=== PATIENT | male | born 1945 | race Caucasian/White ===

== ENCOUNTER 2016-03-25 10:10 | Observation (INO) | payer MEDICARE, BC ==
[2016-03-25] MEDS ORDERED: SODIUM CHLORIDE 0.9% 1,000 ML IV STA (10:18)
[2016-03-25 10:27] LABS: Glucose,Whole Blood 310 mg/dL (75-99)
[2016-03-25 10:39] LABS: Basophils % (A) 1 %; CH 31.4; CHCM 32.8; Eosinophils # (A) 0.3 k/uL (0-0.7); Eosinophils % (A) 4 %; HCT 40.5 % (39.0-53.0); HDW 2.71; HGB 13.3 gm/dL (13.0-17.5); Luc % (Auto) 3; Lymphocytes # (A) 2.7 k/uL (1.0-4.8); Lymphocytes % (A) 44 %; MCH 31.6 pg (25.0-35.0); MCHC 32.8 g/dL (31.0-37.0); MCV 96.4 fL (80.0-100.0); Mean Platelet Volume 7.2; Monocytes # (A) 0.3 k/uL (0-1.0); Monocytes % (A) 4 %; Neutrophils # (A) 2.7 k/uL (1.3-7.7); Neutrophils % (A) 44 %; RDW 12.4 % (11.5-15.5); WBC 6.1 k/uL (3.8-10.6); WBC (Perox) 6.33
[2016-03-25 10:50] LABS: INR 1.1 (<1.1); Partial Thromboplastin Time 30.4 sec (22.0-30.0); Prothrombin Time 10.8 sec (9.0-12.0)
[2016-03-25 10:52] LABS: ALT 33 U/L (21-72); AST 17 U/L (17-59); Alkaline Phosphatase 79 U/L (38-126); Anion Gap 13 mmol/L; Blood Urea Nitrogen 29 mg/dL (9-20); Calcium 8.6 mg/dL (8.4-10.2); Carbon Dioxide 24 mmol/L (22-30); Chloride 100 mmol/L (98-107); Glucose 305 mg/dL (74-99); Magnesium 1.8 mg/dL (1.6-2.3); Non-African American GFR(MDRD) 52 (>60 ml/min/1.73 sqM); Potassium 4.4 mmol/L (3.5-5.1); Sodium 137 mmol/L (137-145); Total Bilirubin 0.7 mg/dL (0.2-1.3); Total Protein 6.3 g/dL (6.3-8.2)
--- NOTE | 2016-03-25 10:55 | ED ---
Altered Mental Status HPI - General Chief Complaint: Altered Mental Status Stated Complaint: Altered Mental Time Seen by Provider: 03/25/16 10:10 Source: patient, family, EMS, RN notes reviewed Mode of arrival: EMS Limitations: no limitations - History of Present Illness Initial Comments: This is a 70-year-old male with a history of CVA who apparently was in the shower and when he was being helped out of the stand down and became unresponsive for up to 20 minutes per his family. EMS was called he was found to be ashen unresponsive blood pressure 96/58. 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 Patient did respond to 300 mL of IV fluid with improvement of his systolic blood pressure to 112 he did have a blood sugar 319 initially. 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 He also has a recent treatment with injections into his neck. No reports of fevers chills nausea vomiting chest pain cough or phlegm production. MD Complaint: altered mental status, confusion, decreased responsiveness - Related Data Home Medications Medication Instructions Recorded Confirmed Aspirin EC [Ecotrin] 325 mg PO DAILY 02/10/15 03/25/16 Gabapentin [Neurontin] 800 mg PO BID 02/10/15 03/25/16 Pioglitazone [Actos] 45 mg PO DAILY 02/10/15 03/25/16 Valsartan/Hydrochlorothiazide 1 tab PO DAILY 02/10/15 03/25/16 [Valsartan-Hctz 160-12.5 mg Tab] sitaGLIPtin PHOSPHATE [Januvia] 100 mg PO DAILY 02/10/15 03/25/16 traMADol HCL [Ultram] 50 mg PO TID 02/10/15 03/25/16 Multivitamins, Thera [Multivitamin] 1 tab PO DAILY 03/25/16 03/25/16 glipiZIDE [Glipizide Xl] 10 mg PO BID 03/25/16 03/25/16 Previous Rx's Medication Instructions Recorded Levofloxacin [Levaquin] 500 mg PO DAILY #7 tab 02/14/15 Allergies Allergy/AdvReac Type Severity Reaction Status Date / Time Penicillins Allergy Mild Rash/Hives Verified 02/10/15 12:10 ceftriaxone [From Rocephin] Allergy Unknown Verified 03/25/16 10:36 doxycycline Allergy Unknown Verified 03/25/16 10:36 Review of Systems ROS Statement: Those systems with pertinent positive or pertinent negative responses have been documented in the HPI. ROS Other: All systems not noted in ROS Statement are negative. Past Medical History Past Medical History: CVA/TIA, Diabetes Mellitus, Hypertension Additional Past Medical History / Comment(s): cva 2012-left hand and arm weakness History of Any Multi-Drug Resistant Organisms: None Reported Past Surgical History: Appendectomy, Back Surgery, Tonsillectomy Additional Past Surgical History / Comment(s): CAROTID ENDARC, KNEE SURGERY- arthroscopic, fusion C5-C7 with screw. Skin cells removed from bilat. side of face. Past Anesthesia/Blood Transfusion Reactions: No Reported Reaction, Motion Sickness Past Psychological History: No Psychological Hx Reported Smoking Status: Never smoker Past Alcohol Use History: None Reported Past Drug Use History: None Reported - Past Family History Mother Family Medical History: Diabetes Mellitus, Myocardial Infarction (PR) Father Family Medical History: CVA/TIA Brother(s) Family Medical History: CVA/TIA General Exam - General Exam Comments Initial Comments: This a well-developed well-nourished awake alert oriented history male Limitations: no limitations General appearance: alert, in no apparent distress Head exam: Present: atraumatic, normocephalic, normal inspection Eye exam: Present: normal appearance, PERRL, EOMI. Absent: scleral icterus, conjunctival injection, periorbital swelling ENT exam: Present: normal exam, mucous membranes moist Neck exam: Present: normal inspection. Absent: tenderness, meningismus, lymphadenopathy Respiratory exam: Present: normal lung sounds bilaterally. Absent: respiratory distress, wheezes, rales, rhonchi, stridor Cardiovascular Exam: Present: regular rate, normal rhythm, normal heart sounds. Absent: systolic murmur, diastolic murmur, rubs, gallop, clicks GI/Abdominal exam: Present: soft, normal bowel sounds. Absent: distended, tenderness, guarding, rebound, rigid Extremities exam: Present: normal inspection, full ROM, normal capillary refill. Absent: tenderness, pedal edema, joint swelling, calf tenderness Back exam: Present: normal inspection Neurological exam: Present: alert, oriented X3, CN II-XII intact, motor sensory deficit Psychiatric exam: Present: normal affect, normal mood Skin exam: Present: warm, dry, intact, pallor. Absent: rash Course Vital Signs 03/25/16 03/25/16 10:20 14:06 Temperature 96.5 F L 97.2 F L Pulse Rate 74 79 Respiratory 18 16 Rate Blood Pressure 114/62 142/79 O2 Sat by Pulse 96 100 Oximetry - Reevaluation(s) Reevaluation #1: 03/25/16 14:13 Patient remains awake alert. The CAT scan of the chest was pending due to elevated d-dimer. Medical Decision Making - Medical Decision Making The patient remains awake alert oriented history he will be admitted for evaluation of syncope. - Lab Data Result diagrams: 03/25/16 10:25 03/25/16 10:25 Lab Results 03/25/16 03/25/16 03/25/16 Range/Units 10:25 10:25 10:25 WBC 6.1 (3.8-10.6) k/uL RBC 4.20 L (4.30-5.90) m/uL Hgb 13.3 (13.0-17.5) gm/dL Hct 40.5 (39.0-53.0) % MCV 96.4 (80.0-100.0) fL MCH 31.6 (25.0-35.0) pg MCHC 32.8 (31.0-37.0) g/dL RDW 12.4 (11.5-15.5) % Plt Count 169 (150-450) k/uL Neutrophils % 44 % Lymphocytes % 44 % Monocytes % 4 % Eosinophils % 4 % Basophils % 1 % Neutrophils # 2.7 (1.3-7.7) k/uL Lymphocytes # 2.7 (1.0-4.8) k/uL Monocytes # 0.3 (0-1.0) k/uL Eosinophils # 0.3 (0-0.7) k/uL Basophils # 0.0 (0-0.2) k/uL PT (9.0-12.0) sec INR (<1.1) APTT (22.0-30.0) sec D-Dimer (<0.60) mg/L FEU Sodium (137-145) mmol/L Potassium (3.5-5.1) mmol/L Chloride (98-107) mmol/L Carbon Dioxide (22-30) mmol/L Anion Gap mmol/L BUN (9-20) mg/dL Creatinine (0.66-1.25) mg/dL Est GFR (MDRD) Af Amer (>60 ml/min/1.73 sqM) Est GFR (MDRD) Non-Af (>60 ml/min/1.73 sqM) Glucose (74-99) mg/dL POC Glucose (mg/dL) 310 H (75-99) mg/dL POC Glu Tax Services Specialist ID Branch, Javier Calcium (8.4-10.2) mg/dL Magnesium (1.6-2.3) mg/dL Total Bilirubin (0.2-1.3) mg/dL AST (17-59) U/L ALT (21-72) U/L Alkaline Phosphatase (38-126) U/L Total Creatine Kinase 27 L (55-170) U/L CK-MB (CK-2) 0.7 (0.0-2.4) ng/mL CK-MB (CK-2) Rel Index 2.6 Troponin I <0.012 (0.000-0.034) ng/mL Total Protein (6.3-8.2) g/dL Albumin (3.5-5.0) g/dL 03/25/16 03/25/16 Range/Units 10:25 10:25 WBC (3.8-10.6) k/uL RBC (4.30-5.90) m/uL Hgb (13.0-17.5) gm/dL Hct (39.0-53.0) % MCV (80.0-100.0) fL MCH (25.0-35.0) pg MCHC (31.0-37.0) g/dL RDW (11.5-15.5) % Plt Count (150-450) k/uL Neutrophils % % Lymphocytes % % Monocytes % % Eosinophils % % Basophils % % Neutrophils # (1.3-7.7) k/uL Lymphocytes # (1.0-4.8) k/uL Monocytes # (0-1.0) k/uL Eosinophils # (0-0.7) k/uL Basophils # (0-0.2) k/uL PT 10.8 (9.0-12.0) sec INR 1.1 (<1.1) APTT 30.4 H (22.0-30.0) sec D-Dimer 0.95 H (<0.60) mg/L FEU Sodium 137 (137-145) mmol/L Potassium 4.4 (3.5-5.1) mmol/L Chloride 100 (98-107) mmol/L Carbon Dioxide 24 (22-30) mmol/L Anion Gap 13 mmol/L BUN 29 H (9-20) mg/dL Creatinine 1.35 H (0.66-1.25) mg/dL Est GFR (MDRD) Af Amer >60 (>60 ml/min/1.73 sqM) Est GFR (MDRD) Non-Af 52 (>60 ml/min/1.73 sqM) Glucose 305 H (74-99) mg/dL POC Glucose (mg/dL) (75-99) mg/dL POC Glu Tax Services Specialist ID Calcium 8.6 (8.4-10.2) mg/dL Magnesium 1.8 (1.6-2.3) mg/dL Total Bilirubin 0.7 (0.2-1.3) mg/dL AST 17 (17-59) U/L ALT 33 (21-72) U/L Alkaline Phosphatase 79 (38-126) U/L Total Creatine Kinase (55-170) U/L CK-MB (CK-2) (0.0-2.4) ng/mL CK-MB (CK-2) Rel Index Troponin I (0.000-0.034) ng/mL Total Protein 6.3 (6.3-8.2) g/dL Albumin 3.5 (3.5-5.0) g/dL - EKG Data -: EKG Interpreted by Ia EKG shows normal: sinus rhythm (Sinus rhythm first-degree AV block occasional PVCs rate was 79 MD interval 248 QRS duration 90 QT/QTC of 390/447 also evidence of old inferior changes) - Radiology Data Radiology results: report reviewed (I did review the imaging and report. The CAT scan as well as dense of aneurysms ascending aorta. 4.1 cm. Proximal ascending aorta 3.8 cm. Proximal ascending aorta 3.0 cm. Non-optimize for excluding pulmonary embolism.), image reviewed Critical Care Time Critical Care Time: Yes Critical Care Time: 39 minutes which includes the monitoring of the initial EMS report as well as evaluation for the paramedics. History physical labs x-rays CAT scans discussed with family members on multiple occasions. Discussion with the admitting physician. Documentation above admission orders Disposition Clinical Impression: Syncope and collapse Disposition: ADMITTED IP TO THIS HOSP Condition: Stable
--- NOTE | 2016-03-25 10:57 | XR ---
EXAMINATION TYPE: XR chest 2V DATE OF EXAM: 03/25/2016 10:50 AM COMPARISON: 02/10/1950 HISTORY: Shortness of breath TECHNIQUE: Frontal and lateral views of the chest are obtained. FINDINGS: Scattered senescent parenchymal changes noted. Hyperinflation compatible with COPD. No evidence for infiltrate. Mild right basilar atelectasis. Chronic elevation right hemidiaphragm. Heart size is stable. Mediastinal structures are stable and grossly unremarkable. No evidence for hilar prominence. Degenerative changes dorsal spine. IMPRESSION: 1. No evidence for acute pulmonary disease.
[2016-03-25 11:06] LABS: Creatine Kinase 27 U/L (55-170)
[2016-03-25 11:19] LABS: Creatine Kinase MB 0.7 ng/mL (0.0-2.4); Troponin I <0.012 ng/mL (0.000-0.034)
--- NOTE | 2016-03-25 11:19 | CT ---
EXAMINATION TYPE: CT brain wo con DATE OF EXAM: 03/25/2016 10:46 AM COMPARISON: Prior CT brain 10 February 2015 HISTORY: Patient complains of syncopal episode today. CT DLP: 810.5 mGycm Automated exposure control for dose reduction was used. FINDINGS: There is no acute intracranial hemorrhage, mass effect, or midline shift identified. The ventricles and sulci are within normal limits in size accounting for patient's age, there is cortical atrophy an d evidence of prior cerebrovascular accident as on prior exam.. Cerebral vascular calcifications are again seen. Periventricular white matter low-attenuation is again noted. Some low attenuation at Mec shelley's cave region, at the level of the basilar artery seen on previous exam shows a similar appearanc e and may be medical claims representative of fat deposition, lipoma. Basal ganglia foci of low attenuation on the l eft compatible with lacunar infarcts as noted on previous. The globes are intact and the visualized s inuses are clear. IMPRESSION: No acute intracranial hemorrhage, mass effect, or midline shift is seen. Evidence of previous cerebro vascular accidents. Additional findings above.
[2016-03-25] MEDS ORDERED: SODIUM CHLORIDE 0.9% 500 ML IV STA (12:43)
[2016-03-25] MEDS ORDERED: RX INFO: IV CONTRAST WAS GIVEN 1 EACH MISC MISCELLANE PRN (12:43)
--- NOTE | 2016-03-25 14:07 | CT ---
EXAMINATION TYPE: CT angio chest DATE OF EXAM: 03/25/2016 1:51 PM COMPARISON: NONE HISTORY: Altered mental status CT DLP: 615 mGycm Automated exposure control for dose reduction was used. CONTRAST: CTA scan of the thorax is performed with IV Contrast, patient injected with 100 ml mL of Omnipaque 35 0, pulmonary embolism protocol. MIP images are created and reviewed. 3D reconstructed images are cr eated on an independent workstation and reviewed. FINDINGS Ascending aorta is aneurysmal at 4.1 cm at the level of the root. Proximal ascending aorta 3.8 cm. Proximal descending aorta is 3 cm. Contrast opacification within the pulmonary arteries is not optima l. Atheromatous plaque present within the aorta. Coronary artery calcifications are present. There ar e calcified mediastinal lymph nodes present, calcified right hilar nodes as well as calcifications wi thin the spleen. The right hemidiaphragm is elevated. There is no pneumothorax or pleural effusion. N o endobronchial lesion or pericardial effusion. No evident adenopathy. The proximal left subclavian a rtery may be stenotic. Postop change noted in the cervical spine. Patchy basilar atelectatic change i s present at the right lung base. OTHER: No additional significant abnormality is seen. There is a small hiatal hernia present. IMPRESSION: THE EXAM IS NOT OPTIMIZED TO EXCLUDE PULMONARY EMBOLISM DUE TO TECHNICAL FACTORS. 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
[2016-03-25] MEDS ORDERED: SODIUM CHLORIDE 0.9% 1,000 ML IV SCH (14:15)
[2016-03-25 14:46] LABS: Glucose,Whole Blood 230 mg/dL (75-99)
[2016-03-25 15:31] LABS: Appearance,Urine Clear (Clear); Bilirubin,Urine Negative (Negative); Glucose,Urine (UA) 4+ (Negative); Ketones,Urine Trace (Negative); Leukocyte Esterase,Urine Negative (Negative); Nitrite,Urine Negative (Negative); PH, Urine 5.5 (5.0-8.0); Protein,Urine Trace (Negative); Specific Gravity,Urine 1.043 (1.001-1.035); UA Billing (MACRO vs. MICRO) CHEM; Urobilinogen,Urine <2.0 mg/dL (<2.0)
--- NOTE | 2016-03-25 16:16 | US ---
EXAMINATION TYPE: US carotid duplex BILAT DATE OF EXAM: 03/25/2016 4:00 PM COMPARISON: Previous study dated 02/11/2015 CLINICAL HISTORY: Stenosis. Altered mental status EXAM MEASUREMENTS: RIGHT: Peak Systolic Velocity (PSV) cm/sec ----- Right CCA: 57.1 ----- Right ICA: 107.9 ----- Right ECA: 16.2 ICA/CCA ratio: 1.9 RIGHT: End Diastole cm/sec ----- Right CCA: 14.0 ----- Right ICA: 27.6 ----- Right ECA: 0.0 LEFT: Peak Systolic Velocity (PSV) cm/sec ----- Left CCA: 115.0 ----- Left ICA: 103.4 ----- Left ECA: 225.8 ICA/CCA ratio: 0.9 LEFT: End Diastole cm/sec ----- Left CCA: 15.3 ----- Left ICA: 31.2 ----- Left ECA: 0.0 VERTEBRALS (direction of flow): Right Vertebral: Antegrade Left Vertebral: Antegrade TECHNOLOGIST IMPRESSION: Bilateral intimal thickening, large amount of plaque throughout bilateral C CA, bulb, ICA and ECA, elevated velocity: left mid ECA IMPRESSION: 1. I do not see evidence of a hemodynamically significant stenosis in either internal or common carot id arteries. 2. Elevated flow velocity, left ECA. Criteria for Assigning % of Stenosis / Diameter reduction (Estimation based on the indirect measurements of the internal carotid artery velocities (ICA PSV). 1. Normal (no stenosis)=ICA PSV < 125 cm/s: ratio < 2.0: ICA EDV<40 cm/s. 2. Less than 50% stenosis=ICA PSV < 125 cm/s: ratio < 2.0: ICA EDV<40 cm/s. 3. 50 to 69% stenosis=ICA PSV of 125 to 230 cm/s: ration 2.0 ? 4.0: ICA EDV 40-100 cm/s. 4. Greater than 70% stenosis to near occlusion= ICA PSV > 230 cm/s: ratio > 4.0: ICA EDV > 100 cm/s. 5. Near occlusion= ICA PSV velocities may be low or undetectable: variable ratio and ICA EDV. 6. Total occlusion=unable to detect flow.
[2016-03-25] MEDS: traMADol 50 MG TAB PO SCH ×2 (17:32→21:42)
[2016-03-25] MEDS: INSULIN LISPRO (humaLOG) 300 UNIT/3 ML VIAL SQ SCH ×2 (17:34→21:39)
[2016-03-25 18:25] LABS: Glucose,Whole Blood 221 mg/dL (75-99)
[2016-03-25] MEDS: glipiZIDE 10 MG TAB PO SCH (18:25)
[2016-03-25 21:15] LABS: Glucose,Whole Blood 188 mg/dL (75-99)
[2016-03-25] MEDS: GABAPENTIN 400 MG CAP PO SCH (21:38)
[2016-03-25 22:24] LABS: Hemoglobin A1C 8.3 % (4.2-6.1)
[2016-03-26 07:07] LABS: Glucose,Whole Blood 172 mg/dL (75-99)
[2016-03-26 07:51] LABS: Anion Gap 8 mmol/L; Blood Urea Nitrogen 21 mg/dL (9-20); Calcium 8.7 mg/dL (8.4-10.2); Carbon Dioxide 27 mmol/L (22-30); Chloride 104 mmol/L (98-107); Cholesterol 147 mg/dL (<200); Glucose 157 mg/dL (74-99); HDL Cholesterol 32 mg/dL (40-60); Non-African American GFR(MDRD) >60 (>60 ml/min/1.73 sqM); Potassium 4.3 mmol/L (3.5-5.1); Sodium 139 mmol/L (137-145); Triglycerides 120 mg/dL (<150)
--- NOTE | 2016-03-26 08:27 | HP ---
DATE OF ADMISSION: Patient is a very pleasant 70-year-old gentleman who came in after he had a syncopal event. Patient was sitting in bathroom on the commode and patient's granddaughter was shaving his hutson around the neck area. Patient subsequently rolled his eyes and had a brief episode of unresponsiveness and patient appears to be responsive when EMS came in and patient was found responsive. Appears to have lasted only for a few minutes, although patient's family believes he was unresponsive for 20 minutes. Palpation does not appear to him, postictal confusion, denied any seizure-like activity. Patient was extensively evaluated during his previous hospitalization for seizures by Neurology at that time. Extensive work-up including MRI. EGR was done and essentially negative. Patient has a CVA with residual left-sided weakness. Previous history of CVA with ( ). This patient was evaluated due to his previous hospitalization for syncopal episodes. Patient's blood pressure was low when he was unresponsive 96/58 with normal blood sugars and the patient's orthostatic vitals appear to be essentially abnormal at this point of time. Patient's EKG showed some post degree AV block. Patient's blood pressures appear to be fluctuating at this point of time. Patient is on hydrochlorothiazide as well as losartan. Patient has poor renal function with creatinine of 1.3. Patient denied any diarrhea. Patient appears to have poor oral take. Patient appears to have elevated BUN as well. Patient's syncopal episode is either due to hypovolemia or vasovagal event during that shaving episode. Patient had similar episodes when he was in the bathroom and straining himself. Will obtain an echocardiogram. Will hydrate him with gentle hydration. Repeat electrolytes tomorrow. Patient does not have any loss of bowel or bladder incontinence. The patient's history is not consistent with either CVA or any seizure activity. Patient appears to have had a syncopal episode to the above-mentioned reasons. REVIEW OF SYSTEMS: REVIEW OF SYSTEMS: CONSTITUTIONAL: No fever, no malaise, no fatigue. HEENT: No recent visual problems or hearing problems. Denied any sore throat. CARDIOVASCULAR: As described in HPI. Patient denied any chest pain. PULMONARY: No shortness of breath, no cough, no hemoptysis. GASTROINTESTINAL: No diarrhea, no nausea, no vomiting, no abdominal pain. Normoactive bowel sounds. NEUROLOGICAL: As described in HPI. HEMATOLOGICAL: Denies any bleeding or petechiae. GENITOURINARY: Denies any burning micturition, frequency, or urgency. MUSCULOSKELETAL/RHEUMATOLOGICAL: Denies any joint pain, swelling, or any muscle pain. ENDOCRINE: Denies any polyuria or polydipsia. The rest of the 14 point review of systems is negative. Home medications include: 1. Aspirin. 2. Gabapentin. 3. Pioglitazone. 4. Valsartan/hydrochlorothiazide. 5. Sitagliptin. 6. Tramadol. 7. Multivitamin. 8. Glipizide. 9. Patient is also levofloxacin, not sure why; I discontinued the levofloxacin as these were started on 03/17 and supposed to use only 7 days, which will end on 03/24. ALLERGIES: Allergic to PENICILLIN, CEFTRIAXONE and DOXYCYCLINE. PAST MEDICAL HISTORY: CVA, TIA in the past, diabetes mellitus, hypertension, ( ). PAST SURGICAL HISTORY: Appendectomy, back surgery, tonsillectomy, carotid endarterectomy in the past. Bilateral carotid Doppler that at this oint in time, did not show any significant occlusion. Patient had a CT angio in the past. SOCIAL HISTORY: Denied any smoking, alcohol abuse, or any drug abuse. FAMILY HISTORY: Mother had diabetes mellitus, myocardial infarction, father had CVA, TIA, brother had CVA, TIA. PHYSICAL EXAMINATION: VITAL SIGNS: Temperature 97.7, pulse of 78, blood pressure has gone down to as low as 110/60. Patient has positive orthostatic vitals. Saturating at 99% on room air. GENERAL: The patient is alert and oriented x3, not in any acute distress. Well developed, well nourished. HEENT: Pupils are round and equally reacting to light. EOMI. No scleral icterus. No conjunctival pallor. Normocephalic, atraumatic. No pharyngeal erythema. No thyromegaly. CARDIOVASCULAR: S1 and S2 present. No murmurs, rubs, or gallops. PULMONARY: Chest is clear to auscultation, no wheezing or crackles. ABDOMEN: Soft, nontender, nondistended, normoactive bowel sounds. No palpable organomegaly. MUSCULOSKELETAL: No joint swelling or deformity. EXTREMITIES: No cyanosis, clubbing, or pedal edema. NEUROLOGICAL: Patient has residual weakness on the left side. No worsening of weakness, tingling or numbness. SKIN: No rashes. LABORATORY DATA: CT of the brain was reviewed which showed some chronic small vessel ischemic changes and CT angio of the chest was negative because of elevated d-dimer, this was obtained after a couple episodes and CT angio did not show any pulmonary embolism although small subsegmental pulmonary emboli cannot be ruled out as per the reading but my suspicion is low for any PE and chest x-ray did not show any pulmonary edema. Carotid Doppler as mentioned above. No significant hemodynamic stenosis at this point of time. The laboratory data, BUN of 29, creatinine 1.35, baseline creatinine is around 0.7, last creatinine during his previous hospitalizations was around 1. ASSESSMENT AND PLAN: 1. Syncope, I believe is due to intravascular volume depletion and renal failure. Patient will be ( ) of IV fluid and patient has low blood pressures. I will hold off on his antihypertensive medications that is losartan and hydrochlorothiazide, hydrate him and will monitor him on electronic device monitor. The other possible etiologies of his vasovagal event is the patient had a syncopal episode when his granddaughter was shaving, probably patient has a contribution of both and patient appears to have had a vasovagal event in the past. I am obtaining an echocardiogram. 2. History of cerebrovascular accident with residual weakness on the left side. Continue with antiplatelet therapy and patient does not appear to be in any cholesterol medications. I will obtain an LDL tomorrow. 3. Hypertension, holding off antihypertensives due to above-mentioned reasons. 4. Diabetes mellitus, mildly elevated blood sugars. I will go ahead and continue his home medications. Depending on his blood sugar tomorrow, I will titrate his blood sugar medications. 5. History of carotid endarterectomy in the past.
[2016-03-26] MEDS ORDERED: VALSARTAN 160 MG TAB PO SCH (09:00)
[2016-03-26] MEDS ORDERED: LEVOFLOXACIN 500 MG TAB PO SCH (09:00)
[2016-03-26] MEDS ORDERED: HYDROCHLOROTHIAZIDE 12.5 MG CAP PO SCH (09:00)
[2016-03-26] MEDS ORDERED: LINAGLIPTIN 5 MG TABLET PO SCH (09:00)
[2016-03-26] MEDS ORDERED: ASPIRIN 325 MG TAB PO SCH (09:00)
[2016-03-26] MEDS ORDERED: PIOGLITAZONE 45 MG TAB PO SCH (09:00)
[2016-03-26] MEDS: traMADol 50 MG TAB PO SCH (10:02)
[2016-03-26] MEDS: GABAPENTIN 400 MG CAP PO SCH (10:03)
[2016-03-26] MEDS: glipiZIDE 10 MG TAB PO SCH (10:03)
[2016-03-26] MEDS: INSULIN LISPRO (humaLOG) 300 UNIT/3 ML VIAL SQ SCH ×2 (10:04→12:54)
--- NOTE | 2016-03-26 10:47 | ECHOF ---
Referral Reason:syncope MEASUREMENTS -------- HEIGHT: 180.3 cm WEIGHT: 77.1 kg BP: 101/59 RVIDd: 3.8 cm (< 3.3) IVSd: 1.3 cm (0.6 - 1.1) LVIDd: 4.6 cm (3.9 - 5.3) LVPWd: 1.2 cm (0.6 - 1.1) IVSs: 1.4 cm LVIDs: 3.2 cm LVPWs: 1.6 cm LA Diam: 3.4 cm (2.7 - 3.8) LAESV Index (A-L): 15.48 ml/m Ao Diam: 3.9 cm (2.0 - 3.7) AV Cusp: 2.2 cm (1.5 - 2.6) LA Diam: 2.8 cm (2.7 - 3.8) MV EXCURSION: 12.148 mm (> 18.000) MV EF SLOPE: 67 mm/s (70 - 150) EPSS: 0.7 cm MV E Drake: 0.88 m/s MV DecT: 222 ms MV A Drake: 0.71 m/s MV E/A Ratio: 1.23 RAP: 5.00 mmHg RVSP: 30.04 mmHg FINDINGS -------- Sinus rhythm. This was a technically good study. There is mild concentric left ventricular hypertrophy. Overall left ventricular systolic function is normal with, an EF between 55 - 60 %. The right ventricle is mild to moderately enlarged. Normal LA size by volume 22+/-6 ml/m2. The right atrium is normal in size. Aortic valve is trileaflet and is mildly thickened. The mitral valve leaflets are mildly thickened. Mild mitral annular calcification present. Mild mitral regurgitation is present. Mild tricuspid regurgitation present. Right ventricular systolic pressure is normal at < 35 mmHg. Trace/mild (physiologic) pulmonic regurgitation. The aortic root is dilated measuring 3.9cm. Echo free space may represent effusion or a pericardial fat pad. CONCLUSIONS -------- 1. Sinus rhythm. 2. Mild mitral annular calcification present. 3. Mild mitral regurgitation is present. 4. Mild tricuspid regurgitation present. 5. Right ventricular systolic pressure is normal at < 35 mmHg. 6. Trace/mild (physiologic) pulmonic regurgitation. 7. The aortic root is dilated measuring 3.9cm. 8. Echo free space may represent effusion or a pericardial fat pad. 9. This was a technically good study. 10. There is mild concentric left ventricular hypertrophy. 11. Overall left ventricular systolic function is normal with, an EF between 55 - 60 %. 12. The right ventricle is mild to moderately enlarged. 13. Normal LA size by volume 22+/-6 ml/m2. 14. The right atrium is normal in size. 15. Aortic valve is trileaflet and is mildly thickened. 16. The mitral valve leaflets are mildly thickened. BEAD BUILDER: Declan Narayanan RDCS
[2016-03-26] MEDS ORDERED: MULTIVITAMINS, THERA 1 EACH TAB PO SCH (12:00)
[2016-03-26 12:05] LABS: Glucose,Whole Blood 201 mg/dL (75-99)
[2016-03-26 13:36] VITALS: BP 132/63; PULSE 105; RESP 16; TEMP 97.3
--- NOTE | 2016-03-27 09:19 | DS ---
DATE OF ADMISSION: 03/25/2016 DATE OF DISCHARGE: 03/26/2016 This is a 70-year-old admitted for a syncopal event, which the patient was found to be hypotensive and I am discontinuing his antihypertensive medication. The patient was asked to rehabilitation services counselor regarding appropriate way to check the blood pressure. Patient was also given IV fluids. Patient is on the volume depleted side without any signs or symptoms of diarrhea. His creatinine improved from 1.35 to 0.9 with IV fluid hydration and BUN from 29 to 21. Echocardiogram, EKG and telemetry, no significant abnormality was appreciated. The patient will be discharged today. Will discontinue antihypertensive medications. I believe antihypertensive medication along with intravascular volume depletion were contributed to his syncope. There may be a component of vasovagal event as well. The patient was seen and examined on the day of discharge. Vitals are stable. No significant change in physical exam compared to yesterday. ASSESSMENT AND PLAN: 1. Syncope due to above mentioned reasons. 2. History of cerebrovascular accident ( ). 3. Hypertension. 4. Type 2 diabetes mellitus. Patient will be discharged today. I discontinued his antihypertensive medications. Rest of the medications he can continue as is. His blood sugars are fairly controlled with home regimen. Patient will follow up with primary care physician Dr. Aranda in about 3 to 7 days. Activity as tolerated. Cardiac and diabetic 1800 calorie diet. Patient's LDL 91.
== END 2016-03-26 15:22 | disposition home or self-care (01) ==
LOC: EC 10:10 → 3OBS 14:15
PROVIDERS: ADMIT Internal Medicine; ATTEND Internal Medicine
DX: R55 Syncope and collapse (principal); I95.9 Hypotension, unspecified; E86.9 Volume depletion, unspecified; I10 Essential (primary) hypertension; E11.65 Type 2 diabetes mellitus with hyperglycemia; N19 Unspecified kidney failure; I69.354 Hemiplegia and hemiparesis following cerebral infarction affecting left non-dominant side; I44.0 Atrioventricular block, first degree; Z79.899 Other long term (current) drug therapy; Z79.82 Long term (current) use of aspirin; Z79.84 Long term (current) use of oral hypoglycemic drugs; Z88.1 Allergy status to other antibiotic agents; Z88.0 Allergy status to penicillin; Z83.3 Family history of diabetes mellitus; Z82.49 Family history of ischemic heart disease and other diseases of the circulatory system
CPT/HCPCS: 96361 ×7; 96360 ×2; 99291 ×2; 36415; 93005; 93306; 97161; 85379; 80053; 80048; 80061; 83036; 82550; 82553; 83735; 84484; 85025; 85610; 85730; 81003; 71020; 93880; 70450; 71275; G0378 ×2; Q9967

== ENCOUNTER 2018-07-08 19:02 | Inpatient (IN) | payer MEDICARE, BC ==
--- NOTE | 2018-07-08 19:40 | XR ---
EXAMINATION TYPE: XR chest 2V DATE OF EXAM: 07/08/2018 COMPARISON: 03/25/2016 HISTORY: Altered mental status TECHNIQUE: Frontal and lateral views of the chest are obtained. FINDINGS: There is elevated right diaphragm. There is no heart failure. There is cervical spine fusi on surgery. Lungs appear clear of consolidation. IMPRESSION: Chronic elevated right diaphragm suggestive of paralysis. No acute lung disease. There i s slight improved aeration of the lungs compared to last exam.
--- NOTE | 2018-07-08 20:02 | CT ---
EXAMINATION TYPE: CT brain wo con DATE OF EXAM: 07/08/2018 COMPARISON: 03/25/2016 HISTORY: Confusion CT DLP: 1188.4 mGycm Automated exposure control for dose reduction was used. FINDINGS: There is cerebral cortical atrophy. There is hypodensity in the periventricular white matter. There i s enlargement of sulci right parietal lobe consistent with old cortical infarct and encephalomalacia. There is no midline shift. There is no sign of intracranial hemorrhage. Calvarium is intact. IMPRESSION: CEREBRAL ATROPHY. CHRONIC SMALL VESSEL ISCHEMIA. OLD RIGHT PARIETAL CORTICAL INFARCT. THERE IS SLIGHT PROGRESSION OF THE DISEASE COMPARED TO OLD EXAM. NO EVIDENCE OF A NEW INFARCT
[2018-07-08 20:08] LABS: Basophils % (A) 0 %; Eosinophils # (A) 0.1 k/uL (0-0.7); Eosinophils % (A) 2 %; HCT 40.6 % (39.0-53.0); HGB 12.8 gm/dL (13.0-17.5); Lymphocytes # (A) 1.1 k/uL (1.0-4.8); Lymphocytes % (A) 15 %; MCH 30.3 pg (25.0-35.0); MCHC 31.5 g/dL (31.0-37.0); Mean Platelet Volume 9.9; Monocytes # (A) 0.3 k/uL (0-1.0); Monocytes % (A) 3 %; Neutrophils % (A) 79 %; Platelet Count 152 k/uL (150-450); RBC 4.23 m/uL (4.30-5.90); RDW 12.9 % (11.5-15.5); WBC 7.6 k/uL (3.8-10.6)
[2018-07-08 20:22] LABS: Appearance,Urine Clear (Clear); Bacteria,Urine Rare /hpf; Bilirubin,Urine Negative (Negative); Blood,Urine Negative (Negative); Color,Urine Yellow; Glucose,Urine (UA) 4+ (Negative); Ketones,Urine Trace (Negative); Leukocyte Esterase,Urine Negative (Negative); Mucus,Urine Rare /hpf; Nitrite,Urine Negative (Negative); PH, Urine 6.5 (5.0-8.0); Protein,Urine 1+ (Negative); RBC,Urine 1 /hpf (0-5); Squamous Epithelial Cell,Urine <1 /hpf (0-4); Urobilinogen,Urine <2.0 mg/dL (<2.0); WBC,Urine 2 /hpf (0-5)
[2018-07-08 20:28] LABS: Amphetamine Screen,Urine Not Detected (NotDetected); Barbiturate Screen,Urine Not Detected (NotDetected); Benzodiazepines Screen,Urine Not Detected (NotDetected); Cocaine Screen,Urine Not Detected (NotDetected); Methadone Screen, Urine Not Detected (NotDetected); Opiate Screen,Urine Not Detected (NotDetected); Oxycodone Screen, Urine Not Detected (NotDetected); Phencyclidine Screen,Urine Not Detected (NotDetected); Tricyclic Antidepressant,Urine Not Detected (NotDetected); Urn Cannabinoid Scrn Not Detected (NotDetected)
[2018-07-08 20:31] LABS: ALT 26 U/L (21-72); AST 20 U/L (17-59); Albumin 3.9 g/dL (3.5-5.0); Alkaline Phosphatase 76 U/L (38-126); Anion Gap 7 mmol/L; Blood Urea Nitrogen 27 mg/dL (9-20); Calcium 9.2 mg/dL (8.4-10.2); Carbon Dioxide 29 mmol/L (22-30); Chloride 105 mmol/L (98-107); Glucose 213 mg/dL (74-99); INR 0.9 (<1.2); Partial Thromboplastin Time 30.9 sec (22.0-30.0); Potassium 4.4 mmol/L (3.5-5.1); Prothrombin Time 10.2 sec (9.0-12.0); Sodium 141 mmol/L (137-145); Total Bilirubin 0.9 mg/dL (0.2-1.3); Total Protein 6.5 g/dL (6.3-8.2)
--- NOTE | 2018-07-08 21:41 | ED ---
Altered Mental Status HPI - General Chief Complaint: Altered Mental Status Stated Complaint: altered mental status Time Seen by Provider: 07/08/18 19:14 Source: patient, RN notes reviewed, old records reviewed Mode of arrival: EMS Limitations: altered mental status - History of Present Illness Initial Comments: This is a 73-year-old male the ER for evaluation. Patient was essay for nausea vomiting weakness altered mental status, failure to Thrive, change in mentation per family. Decreased activity level. Patient has recently treated for outpatient cellulitis of lower extremities and swelling. History of similar. Patient himself is a poor strain, history obtained from family MD Complaint: altered mental status, confusion, decreased responsiveness, weakness -: month(s) Severity: mild Consistency of Symptoms: getting worse, constant Context: history of similar presentation Associated Symptoms: denies other symptoms - Related Data Home Medications Medication Instructions Recorded Confirmed Gabapentin [Neurontin] 800 mg PO BID 02/10/15 07/08/18 sitaGLIPtin PHOSPHATE [Januvia] 100 mg PO DAILY 02/10/15 07/08/18 traMADol HCL [Ultram] 50 mg PO TID 02/10/15 07/08/18 Multivitamins, Thera [Multivitamin 1 tab PO DAILY 03/25/16 07/08/18 (formulary)] glipiZIDE [Glipizide Xl] 10 mg PO BID 03/25/16 07/08/18 Aspirin EC [Ecotrin Low Dose] 81 mg PO DAILY 07/08/18 07/08/18 Furosemide [Lasix] 20 mg PO DAILY 07/08/18 07/08/18 Naproxen Sodium [Aleve] 220 mg PO AC-BID 07/08/18 07/08/18 Valsartan/Hydrochlorothiazide 1 tab PO DAILY 07/08/18 07/08/18 [Valsartan-Hctz 160-25 mg Tab] metFORMIN HCL [Glucophage] 500 mg PO BID 07/08/18 07/08/18 Allergies Allergy/AdvReac Type Severity Reaction Status Date / Time Penicillins Allergy Mild Rash/Hives Verified 07/08/18 20:47 ceftriaxone [From Rocephin] Allergy Unknown Verified 07/08/18 20:47 doxycycline Allergy Unknown Verified 07/08/18 20:47 Review of Systems ROS Statement: Those systems with pertinent positive or pertinent negative responses have been documented in the HPI. ROS Other: All systems not noted in ROS Statement are negative. Past Medical History Past Medical History: CVA/TIA, Diabetes Mellitus, Hypertension, Syncope Additional Past Medical History / Comment(s): cva 2013-left hand and arm weakness, shingles 2013 or 2013, gout, on abx for lt great toe infection,family stated he lost the nail on it., chronic neck/back pain History of Any Multi-Drug Resistant Organisms: None Reported Past Surgical History: Appendectomy, Back Surgery, Tonsillectomy Additional Past Surgical History / Comment(s): CAROTID ENDARt, KNEE SURGERY- arthroscopic, fusion C5-C7 with screw. Skin cells removed from bilat. side of face.pain clinic procdures(inj) Past Anesthesia/Blood Transfusion Reactions: Motion Sickness Past Psychological History: No Psychological Hx Reported Smoking Status: Never smoker Past Alcohol Use History: Unable to Obtain Past Drug Use History: None Reported - Past Family History Mother Family Medical History: Diabetes Mellitus, Myocardial Infarction ([place]) Father Family Medical History: CVA/TIA Brother(s) Family Medical History: CVA/TIA General Exam - General Exam Comments Initial Comments: Bilateral lower extremity edema and erythema Limitations: altered mental status General appearance: alert, in no apparent distress Head exam: Present: atraumatic, normocephalic, normal inspection Eye exam: Present: normal appearance, PERRL, EOMI. Absent: scleral icterus, conjunctival injection, periorbital swelling ENT exam: Present: normal exam, mucous membranes moist Neck exam: Present: normal inspection. Absent: tenderness, meningismus, lymphadenopathy Respiratory exam: Present: normal lung sounds bilaterally. Absent: respiratory distress, wheezes, rales, rhonchi, stridor Cardiovascular Exam: Present: regular rate, normal rhythm, normal heart sounds. Absent: systolic murmur, diastolic murmur, rubs, gallop, clicks GI/Abdominal exam: Present: soft, normal bowel sounds. Absent: distended, tenderness, guarding, rebound, rigid Extremities exam: Present: normal inspection, full ROM, normal capillary refill. Absent: tenderness, pedal edema, joint swelling, calf tenderness Back exam: Present: normal inspection Neurological exam: Present: alert, oriented X3, CN II-XII intact Psychiatric exam: Present: normal affect, normal mood Skin exam: Present: warm, dry, intact, normal color. Absent: rash Course Vital Signs 07/08/18 19:10 Temperature 98.5 F Pulse Rate 85 Respiratory 18 Rate Blood Pressure 147/95 O2 Sat by Pulse 98 Oximetry - Reevaluation(s) Reevaluation #1: 07/08/18 21:55 Medical record is reviewed Reevaluation #2: 07/08/18 21:55 No significant improvement in symptoms here in the ER Medical Decision Making - Medical Decision Making 73 male the ER for evaluation altered mental state. CT chest x-ray negative labwork is normal patient can be discharged home - Lab Data Result diagrams: 07/08/18 Unknown 07/08/18 19:49 Lab Results 07/08/18 07/08/18 07/08/18 Range/Units 19:15 19:49 19:49 WBC (3.8-10.6) k/uL RBC (4.30-5.90) m/uL Hgb (13.0-17.5) gm/dL Hct (39.0-53.0) % MCV (80.0-100.0) fL MCH (25.0-35.0) pg MCHC (31.0-37.0) g/dL RDW (11.5-15.5) % Plt Count (150-450) k/uL Neutrophils % % Lymphocytes % % Monocytes % % Eosinophils % % Basophils % % Neutrophils # (1.3-7.7) k/uL Lymphocytes # (1.0-4.8) k/uL Monocytes # (0-1.0) k/uL Eosinophils # (0-0.7) k/uL Basophils # (0-0.2) k/uL PT (9.0-12.0) sec INR (<1.2) APTT (22.0-30.0) sec Sodium 141 (137-145) mmol/L Potassium 4.4 (3.5-5.1) mmol/L Chloride 105 (98-107) mmol/L Carbon Dioxide 29 (22-30) mmol/L Anion Gap 7 mmol/L BUN 27 H (9-20) mg/dL Creatinine 0.91 (0.66-1.25) mg/dL Est GFR (CKD-EPI)AfAm >90 (>60 ml/min/1.73 sqM) Est GFR (CKD-EPI)NonAf 83 (>60 ml/min/1.73 sqM) Glucose 213 H (74-99) mg/dL Calcium 9.2 (8.4-10.2) mg/dL Total Bilirubin 0.9 (0.2-1.3) mg/dL AST 20 (17-59) U/L ALT 26 (21-72) U/L Alkaline Phosphatase 76 (38-126) U/L Ammonia <9 (<30) umol/L Troponin I <0.012 (0.000-0.034) ng/mL Total Protein 6.5 (6.3-8.2) g/dL Albumin 3.9 (3.5-5.0) g/dL Urine Color Urine Appearance (Clear) Urine pH (5.0-8.0) Ur Specific Hilger (1.001-1.035) Urine Protein (Negative) Urine Glucose (UA) (Negative) Urine Ketones (Negative) Urine Blood (Negative) Urine Nitrite (Negative) Urine Bilirubin (Negative) Urine Urobilinogen (<2.0) mg/dL Ur Leukocyte Esterase (Negative) Urine RBC (0-5) /hpf Urine WBC (0-5) /hpf Ur Squamous Epith Cells (0-4) /hpf Urine Bacteria (None) /hpf Urine Mucus (None) /hpf Urine Opiates Screen (NotDetected) Ur Oxycodone Screen (NotDetected) Urine Methadone Screen (NotDetected) Ur Propoxyphene Screen (NotDetected) Ur Barbiturates Screen (NotDetected) U Tricyclic Antidepress (NotDetected) Ur Phencyclidine Scrn (NotDetected) Ur Amphetamines Screen (NotDetected) U Methamphetamines Scrn (NotDetected) U Benzodiazepines Scrn (NotDetected) Urine Cocaine Screen (NotDetected) U Marijuana (THC) Screen (NotDetected) 07/08/18 07/08/18 07/08/18 Range/Units 19:49 20:11 Unknown WBC 7.6 (3.8-10.6) k/uL RBC 4.23 L (4.30-5.90) m/uL Hgb 12.8 L (13.0-17.5) gm/dL Hct 40.6 (39.0-53.0) % MCV 96.0 (80.0-100.0) fL MCH 30.3 (25.0-35.0) pg MCHC 31.5 (31.0-37.0) g/dL RDW 12.9 (11.5-15.5) % Plt Count 152 (150-450) k/uL Neutrophils % 79 % Lymphocytes % 15 % Monocytes % 3 % Eosinophils % 2 % Basophils % 0 % Neutrophils # 6.0 (1.3-7.7) k/uL Lymphocytes # 1.1 (1.0-4.8) k/uL Monocytes # 0.3 (0-1.0) k/uL Eosinophils # 0.1 (0-0.7) k/uL Basophils # 0.0 (0-0.2) k/uL PT 10.2 (9.0-12.0) sec INR 0.9 (<1.2) APTT 30.9 H (22.0-30.0) sec Sodium (137-145) mmol/L Potassium (3.5-5.1) mmol/L Chloride (98-107) mmol/L Carbon Dioxide (22-30) mmol/L Anion Gap mmol/L BUN (9-20) mg/dL Creatinine (0.66-1.25) mg/dL Est GFR (CKD-EPI)AfAm (>60 ml/min/1.73 sqM) Est GFR (CKD-EPI)NonAf (>60 ml/min/1.73 sqM) Glucose (74-99) mg/dL Calcium (8.4-10.2) mg/dL Total Bilirubin (0.2-1.3) mg/dL AST (17-59) U/L ALT (21-72) U/L Alkaline Phosphatase (38-126) U/L Ammonia (<30) umol/L Troponin I (0.000-0.034) ng/mL Total Protein (6.3-8.2) g/dL Albumin (3.5-5.0) g/dL Urine Color Yellow Urine Appearance Clear (Clear) Urine pH 6.5 (5.0-8.0) Ur Specific Hilger 1.030 (1.001-1.035) Urine Protein 1+ H (Negative) Urine Glucose (UA) 4+ H (Negative) Urine Ketones Trace H (Negative) Urine Blood Negative (Negative) Urine Nitrite Negative (Negative) Urine Bilirubin Negative (Negative) Urine Urobilinogen <2.0 (<2.0) mg/dL Ur Leukocyte Esterase Negative (Negative) Urine RBC 1 (0-5) /hpf Urine WBC 2 (0-5) /hpf Ur Squamous Epith Cells <1 (0-4) /hpf Urine Bacteria Rare H (None) /hpf Urine Mucus Rare H (None) /hpf Urine Opiates Screen Not Detected (NotDetected) Ur Oxycodone Screen Not Detected (NotDetected) Urine Methadone Screen Not Detected (NotDetected) Ur Propoxyphene Screen Not Detected (NotDetected) Ur Barbiturates Screen Not Detected (NotDetected) U Tricyclic Antidepress Not Detected (NotDetected) Ur Phencyclidine Scrn Not Detected (NotDetected) Ur Amphetamines Screen Not Detected (NotDetected) U Methamphetamines Scrn Not Detected (NotDetected) U Benzodiazepines Scrn Not Detected (NotDetected) Urine Cocaine Screen Not Detected (NotDetected) U Marijuana (THC) Screen Not Detected (NotDetected) - EKG Data -: EKG Interpreted by Me (EKG shows sinus rhythm rate of 81, NV 238, QRS 74, QTc 408) - Radiology Data Radiology results: report reviewed (CT brain chest x-rays negative), image reviewed Disposition Clinical Impression: Delirium due to general medical condition, Dementia, Lower extremity cellulitis Disposition: ADMITTED IP TO THIS [facility] Condition: Fair Is patient prescribed a controlled substance at d/c from ED?: No Referrals: Rochelle Aranda MD [Primary Care Provider] - 1-2 days
[2018-07-08] MEDS ORDERED: SODIUM CHLORIDE 0.9% 1,000 ML IV ONE (21:46)
[2018-07-08] MEDS ORDERED: ONDANSETRON 4 MG/2 ML VIAL IVP PRN (21:50)
[2018-07-08] MEDS ORDERED: SODIUM CHLORIDE 0.9% 1,000 ML IV STA (21:50)
[2018-07-08] MEDS ORDERED: SODIUM CHLORIDE 0.9% 500 ML 500 ML IV STA (21:50)
[2018-07-08] MEDS ORDERED: ONDANSETRON 4 MG/2 ML VIAL IVP STA (21:50)
[2018-07-08] MEDS ORDERED: DEXTROSE 5%-0.45% NACL 1,000 ML IV ONE (21:50)
[2018-07-08] MEDS ORDERED: LEVOFLOXACIN 750MG-D5W PMX 750 MG in DEXTROSE/WATER 1 150ML.BAG IVPB STA (21:51)
[2018-07-08 23:11] LABS: Glucose,Whole Blood 164 mg/dL (75-99)
[2018-07-09 07:31] LABS: Glucose,Whole Blood 194 mg/dL (75-99)
[2018-07-09] MEDS: VALSARTAN 160 MG TAB PO SCH (07:58)
[2018-07-09] MEDS: MULTIVITAMINS, THERA 1 EACH TAB PO SCH (07:58)
[2018-07-09] MEDS: ASPIRIN 81 MG PO SCH (07:58)
[2018-07-09] MEDS: INSULIN ASPART (NovoLOG) 100 UNIT/ML VIAL SQ SCH ×4 (07:58→21:37)
[2018-07-09] MEDS ORDERED: IPRATROPIUM-ALBUTEROL 3 ML NEB INHALATION PRN (11:14)
[2018-07-09 11:56] LABS: Glucose,Whole Blood 201 mg/dL (75-99)
--- NOTE | 2018-07-09 12:29 | P.HPIM ---
History of Present Illness 73-year-old male with the advanced dementia baseline alert oriented 1-2 was brought in by family members has a she is unable to take care of him increasing weakness has been going on for a few months. Patient was admitted for dehydration. As per the ER physician patient had altered mental status although patient mental status appears to be at his baseline as per the family. Patient does have swelling of bilateral lower expertise and chronic venous stasis no cellulitis at. Patient denied dysuria denied any cough chest x-ray did not show any pneumonia although there is a chronic right hemidiaphragmatic elevation. Patient doesn't have any evidence of sepsis at this time. Although because of his progressing dementia patient will need subacute rehabilitation and possibly long-term care. Review of Systems Unable to obtain due to his clinical condition/dementia Past Medical History Past Medical History: CVA/TIA, Diabetes Mellitus, Hypertension, Syncope Additional Past Medical History / Comment(s): cva 2012-left hand and arm weakness, shingles 2012 or 2013, gout, on abx for lt great toe infection,family stated he lost the nail on it., chronic neck/back pain History of Any Multi-Drug Resistant Organisms: None Reported Past Surgical History: Appendectomy, Back Surgery, Tonsillectomy Additional Past Surgical History / Comment(s): CAROTID ENDARt, KNEE SURGERY- arthroscopic, fusion C5-C7 with screw. Skin cells removed from bilat. side of face.pain clinic procdures(inj) Past Anesthesia/Blood Transfusion Reactions: Motion Sickness Smoking Status: Never smoker - Past Family History Mother Family Medical History: Diabetes Mellitus, Myocardial Infarction ([place]) Father Family Medical History: CVA/TIA Brother(s) Family Medical History: CVA/TIA Medications and Allergies Home Medications Medication Instructions Recorded Confirmed Type Gabapentin [Neurontin] 800 mg PO BID 02/10/15 07/08/18 History sitaGLIPtin PHOSPHATE [Januvia] 100 mg PO DAILY 02/10/15 07/08/18 History traMADol HCL [Ultram] 50 mg PO TID 02/10/15 07/08/18 History Multivitamins, Thera [Multivitamin 1 tab PO DAILY 03/25/16 07/08/18 History (formulary)] glipiZIDE [Glipizide Xl] 10 mg PO BID 03/25/16 07/08/18 History Aspirin EC [Ecotrin Low Dose] 81 mg PO DAILY 07/08/18 07/08/18 History Furosemide [Lasix] 20 mg PO DAILY 07/08/18 07/08/18 History Naproxen Sodium [Aleve] 220 mg PO AC-BID 07/08/18 07/08/18 History Valsartan/Hydrochlorothiazide 1 tab PO DAILY 07/08/18 07/08/18 History [Valsartan-Hctz 160-25 mg Tab] metFORMIN HCL [Glucophage] 500 mg PO BID 07/08/18 07/08/18 History Allergies Allergy/AdvReac Type Severity Reaction Status Date / Time Penicillins Allergy Mild Rash/Hives Verified 07/08/18 20:47 ceftriaxone [From Rocephin] Allergy Unknown Verified 07/08/18 20:47 doxycycline Allergy Unknown Verified 07/08/18 20:47 Physical Exam Vitals: Vital Signs Temp Pulse Pulse Resp BP BP Pulse Ox 07/09/18 07:39 98.9 F 65 16 154/76 94 L 07/09/18 03:30 18 07/09/18 02:44 97.9 F 75 16 153/79 92 L 07/09/18 00:53 98.3 F 73 16 158/79 96 07/09/18 00:00 98.7 F 78 18 102/42 96 07/08/18 23:00 70 16 104/76 96 07/08/18 22:30 74 18 130/82 96 07/08/18 22:00 74 16 155/84 95 07/08/18 21:30 77 18 139/78 95 07/08/18 21:00 77 16 138/70 96 07/08/18 20:30 79 16 149/78 96 07/08/18 19:10 98.5 F 85 18 147/95 98 Intake and Output 07/08/18 07/09/18 07/09/18 22:59 06:59 14:59 Intake Total 500 Balance 500 Intake: Oral 500 Other: # Voids 1 # Bowel Movements 1 Weight 68.039 kg PHYSICAL EXAMINATION: GENERAL: The patient is alert and oriented x2, not in any acute distress. Well developed, well nourished. HEENT: Pupils are round and equally reacting to light. EOMI. No scleral icterus. No conjunctival pallor. Normocephalic, atraumatic. No pharyngeal erythema. No thyromegaly. CARDIOVASCULAR: S1 and S2 present. No murmurs, rubs, or gallops. PULMONARY: Chest is clear to auscultation, no wheezing or crackles. ABDOMEN: Soft, nontender, nondistended, normoactive bowel sounds. No palpable organomegaly. MUSCULOSKELETAL: No joint swelling or deformity. EXTREMITIES: No cyanosis, clubbing, she does have swelling of both feet with the discoloration of both. No local is of temperature doesn't appear to have cellulitis patient appears to have chronic venous stasis and venous stasis dermatosis NEUROLOGICAL: Gross neurological examination did not reveal any focal deficits. SKIN: No rashes. Results CBC & Chem 7: 07/08/18 Unknown 07/08/18 19:49 Labs: Abnormal Lab Results - Last 24 Hours (Table) 07/08/18 07/08/18 07/08/18 Range/Units 19:49 19:49 20:11 RBC (4.30-5.90) m/uL Hgb (13.0-17.5) gm/dL APTT 30.9 H (22.0-30.0) sec BUN 27 H (9-20) mg/dL Glucose 213 H (74-99) mg/dL POC Glucose (mg/dL) (75-99) mg/dL Urine Protein 1+ H (Negative) Urine Glucose (UA) 4+ H (Negative) Urine Ketones Trace H (Negative) Urine Bacteria Rare H (None) /hpf Urine Mucus Rare H (None) /hpf 07/08/18 07/08/18 07/09/18 Range/Units 23:08 Unknown 07:19 RBC 4.23 L (4.30-5.90) m/uL Hgb 12.8 L (13.0-17.5) gm/dL APTT (22.0-30.0) sec BUN (9-20) mg/dL Glucose (74-99) mg/dL POC Glucose (mg/dL) 164 H 194 H (75-99) mg/dL Urine Protein (Negative) Urine Glucose (UA) (Negative) Urine Ketones (Negative) Urine Bacteria (None) /hpf Urine Mucus (None) /hpf 07/09/18 Range/Units 11:28 RBC (4.30-5.90) m/uL Hgb (13.0-17.5) gm/dL APTT (22.0-30.0) sec BUN (9-20) mg/dL Glucose (74-99) mg/dL POC Glucose (mg/dL) 201 H (75-99) mg/dL Urine Protein (Negative) Urine Glucose (UA) (Negative) Urine Ketones (Negative) Urine Bacteria (None) /hpf Urine Mucus (None) /hpf Thrombosis Risk Factor Assmnt - Choose All That Apply Each Risk Factor Represents 2 Points: Age 61-74 years Thrombosis Risk Factor Assessment Total Risk Factor Score: 2 Thrombosis Risk Factor Assessment Level: Low Risk Assessment and Plan Plan: Possible mild dehydration: Patient received IV fluids. -Generalized deconditioning due to his advancing dementia possibly dementia of Alzheimer's type will require subacute rehabilitation patient is not stable to go home. Because of his there are generalized weakness and deconditioning. 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
[2018-07-09 17:04] LABS: Glucose,Whole Blood 233 mg/dL (75-99)
[2018-07-09 20:25] LABS: Hemoglobin A1C 9.4 % (4.0-6.0)
[2018-07-09 21:18] LABS: Glucose,Whole Blood 189 mg/dL (75-99)
[2018-07-09] MEDS: metFORMIN 500 MG TAB PO SCH (21:37)
[2018-07-09] MEDS: HEPARIN SODIUM,PORCINE 5,000 UNIT/ML 1 ML VIAL SQ SCH (21:37)
[2018-07-09] MEDS ORDERED: LEVOFLOXACIN 750MG-D5W PMX 750 MG in DEXTROSE/WATER 1 150ML.BAG IVPB SCH (22:00)
[2018-07-10 07:11] LABS: Glucose,Whole Blood 179 mg/dL (75-99)
[2018-07-10] MEDS: metFORMIN 500 MG TAB PO SCH ×2 (07:53→21:28)
[2018-07-10] MEDS: MULTIVITAMINS, THERA 1 EACH TAB PO SCH (07:53)
[2018-07-10] MEDS: VALSARTAN 160 MG TAB PO SCH (07:53)
[2018-07-10] MEDS: ASPIRIN 81 MG PO SCH (07:53)
[2018-07-10] MEDS: HEPARIN SODIUM,PORCINE 5,000 UNIT/ML 1 ML VIAL SQ SCH ×2 (07:53→21:28)
[2018-07-10] MEDS: INSULIN ASPART (NovoLOG) 100 UNIT/ML VIAL SQ SCH ×4 (07:54→21:27)
[2018-07-10] MEDS ORDERED: LINAGLIPTIN 5 MG TABLET PO SCH (09:00)
[2018-07-10 11:36] LABS: Glucose,Whole Blood 188 mg/dL (75-99)
--- NOTE | 2018-07-10 12:04 | P.PN ---
Subjective 73-year-old male with the advanced dementia baseline alert oriented 1-2 was brought in by family members has a she is unable to take care of him increasing weakness has been going on for a few months. Patient was admitted for dehydration. As per the ER physician patient had altered mental status although patient mental status appears to be at his baseline as per the family. Patient does have swelling of bilateral lower expertise and chronic venous stasis no cellulitis at. Patient denied dysuria denied any cough chest x-ray did not show any pneumonia although there is a chronic right hemidiaphragmatic elevation. Patient doesn't have any evidence of sepsis at this time. Although because of his progressing dementia patient will need subacute rehabilitation and possibly long-term care. 07/10/2018 No overnight events patient is clinically doing well, waiting disposition to subacute rehabilitation. is not safe to go home Constitutional: Denied any fatigue denied any fever. Cardio vascular: denied any chest pain, palpitations Gastrointestinal denied any nausea vomiting Pulmonary: Denied any shortness of breath cough Neurologic denied any new focal deficits All inpatient medications were reviewed and appropriate changes in these medications as dictated in the interval history and assessment and plan. Objective - Vital Signs Vital signs: Vital Signs Temp 98.1 F 07/10/18 06:52 Pulse 75 07/10/18 06:52 Resp 16 07/10/18 06:52 BP 171/81 07/10/18 06:52 Pulse Ox 95 07/10/18 06:52 Intake & Output 07/09/18 07/10/18 07/10/18 18:59 06:59 18:59 Intake Total 1080 0 Balance 1080 0 Intake: Intake, IV Titration 0 Amount Sodium Chloride 0.9% 1, 0 000 ml @ 100 mls/hr IV . Q10H ONE Rx#:[id number] Oral 1080 Other: Voiding Method Toilet Incontinent Incontinent Incontinent # Voids 2 2 2 # Bowel Movements 1 1 1 - Exam PHYSICAL EXAMINATION: GENERAL: The patient is alert and oriented x2, not in any acute distress. Well developed, well nourished. HEENT: Pupils are round and equally reacting to light. EOMI. No scleral icterus. No conjunctival pallor. Normocephalic, atraumatic. No pharyngeal erythema. No thyromegaly. CARDIOVASCULAR: S1 and S2 present. No murmurs, rubs, or gallops. PULMONARY: Chest is clear to auscultation, no wheezing or crackles. ABDOMEN: Soft, nontender, nondistended, normoactive bowel sounds. No palpable organomegaly. MUSCULOSKELETAL: No joint swelling or deformity. EXTREMITIES: No cyanosis, clubbing, she does have swelling of both feet with the discoloration of both. No local is of temperature doesn't appear to have cellulitis patient appears to have chronic venous stasis and venous stasis dermatosis NEUROLOGICAL: Gross neurological examination did not reveal any focal deficits. SKIN: No rashes. - Labs CBC & Chem 7: 07/08/18 Unknown 07/08/18 19:49 Labs: Abnormal Lab Results - Last 24 Hours (Table) 07/08/18 07/09/18 07/09/18 Range/Units 19:29 16:50 21:07 POC Glucose (mg/dL) 233 H 189 H (75-99) mg/dL Hemoglobin A1c 9.4 H (4.0-6.0) % 07/10/18 07/10/18 Range/Units 06:50 11:24 POC Glucose (mg/dL) 179 H 188 H (75-99) mg/dL Hemoglobin A1c (4.0-6.0) % Assessment and Plan Plan: Possible mild dehydration: Patient received IV fluids. Mental status at baseline -Generalized deconditioning due to his advancing dementia possibly dementia of Alzheimer's type will require subacute rehabilitation patient is not stable to go home. Because of his there are generalized weakness and deconditioning. -Type 2 diabetes mellitus with the glucosuria: Patient resumed on his home medications will monitor blood sugars -Hypertension on valsartan -Bilateral lower extremity edema and discoloration of the foot and onychomycosis, patient does have chronic venous stasis as mentioned above -Dementia:: Possibly dementia of Alzheimer's type -Patient will need oncologic DVT prophylaxis which we'll do with the heparin subcu twice a day
[2018-07-10] MEDS: LISINOPRIL 5 MG TAB PO SCH (12:12)
[2018-07-10 12:28] VITALS: BMI 22.1
[2018-07-10 16:57] LABS: Glucose,Whole Blood 179 mg/dL (75-99)
[2018-07-10 21:06] LABS: Glucose,Whole Blood 251 mg/dL (75-99)
[2018-07-11 06:59] LABS: Glucose,Whole Blood 200 mg/dL (75-99)
[2018-07-11 08:47] VITALS: RESP 16
[2018-07-11] MEDS: MULTIVITAMINS, THERA 1 EACH TAB PO SCH (09:10)
[2018-07-11] MEDS: LISINOPRIL 5 MG TAB PO SCH (09:10)
[2018-07-11] MEDS: metFORMIN 500 MG TAB PO SCH (09:10)
[2018-07-11] MEDS: VALSARTAN 160 MG TAB PO SCH (09:10)
[2018-07-11] MEDS: ASPIRIN 81 MG PO SCH (09:10)
[2018-07-11] MEDS: INSULIN ASPART (NovoLOG) 100 UNIT/ML VIAL SQ SCH ×2 (09:10→12:54)
[2018-07-11] MEDS: HEPARIN SODIUM,PORCINE 5,000 UNIT/ML 1 ML VIAL SQ SCH (09:11)
[2018-07-11 12:07] LABS: Glucose,Whole Blood 212 mg/dL (75-99)
--- NOTE | 2018-07-11 12:29 | P.DS ---
Providers Date of admission: 07/08/18 21:46 Attending physician: Divine Hannon Primary care physician: Rosi Powell [facility] Course: 73-year-old male with the advanced dementia baseline alert oriented 1-2 was brought in by family members has a she is unable to take care of him increasing weakness has been going on for a few months. Patient was admitted for dehydration. As per the ER physician patient had altered mental status although patient mental status appears to be at his baseline as per the family. Patient does have swelling of bilateral lower expertise and chronic venous stasis no cellulitis at. Patient denied dysuria denied any cough chest x-ray did not show any pneumonia although there is a chronic right hemidiaphragmatic elevation. Patient doesn't have any evidence of sepsis at this time. Although because of his progressing dementia patient will need subacute rehabilitation and possibly long-term care. 07/10/2018 No overnight events patient is clinically doing well, waiting disposition to subacute rehabilitation. 07/11/2018 -Patient is clinically doing well will be discharged to subacute the rehab patient will his compression socks Patient bilateral leg edema is no evidence of cellulitis at this time PHYSICAL EXAMINATION: GENERAL: The patient is alert and oriented x2, not in any acute distress. Well developed, well nourished. HEENT: Pupils are round and equally reacting to light. EOMI. No scleral icterus. No conjunctival pallor. Normocephalic, atraumatic. No pharyngeal erythema. No thyromegaly. CARDIOVASCULAR: S1 and S2 present. No murmurs, rubs, or gallops. PULMONARY: Chest is clear to auscultation, no wheezing or crackles. ABDOMEN: Soft, nontender, nondistended, normoactive bowel sounds. No palpable organomegaly. MUSCULOSKELETAL: No joint swelling or deformity. EXTREMITIES: No cyanosis, clubbing, she does have swelling of both feet with the discoloration of both. No local is of temperature doesn't appear to have cellulitis patient appears to have chronic venous stasis and venous stasis derm atosis NEUROLOGICAL: Gross neurological examination did not reveal any focal deficits. SKIN: No rashes. Assessment and Plan Plan: Possible mild dehydration: Patient received IV fluids. Mental status at baseline -Generalized deconditioning due to his advancing dementia possibly dementia of Alzheimer's type will require subacute rehabilitation . -Type 2 diabetes mellitus with the glucosuria: Patient resumed on his home medications will monitor blood sugars -Hypertension on valsartan -Bilateral lower extremity edema and discoloration of the foot and on ychomycosis, patient does have chronic venous stasis as mentioned above -Dementia:: Possibly dementia of Alzheimer's type Patient Condition at Discharge: Fair Plan - Discharge Summary Discharge Rx Participant: No New Discharge Prescriptions: Continue traMADol HCL [Ultram] 50 mg PO TID Gabapentin [Neurontin] 800 mg PO BID sitaGLIPtin PHOSPHATE [Januvia] 100 mg PO DAILY glipiZIDE [Glipizide Xl] 10 mg PO BID Multivitamins, Thera [Multivitamin (formulary)] 1 tab PO DAILY Aspirin EC [Ecotrin Low Dose] 81 mg PO DAILY metFORMIN HCL [Glucophage] 500 mg PO BID Valsartan/Hydrochlorothiazide [Valsartan-Hctz 160-25 mg Tab] 1 tab PO DAILY Discontinued Furosemide [Lasix] 20 mg PO DAILY Naproxen Sodium [Aleve] 220 mg PO AC-BID Discharge Medication List Gabapentin [Neurontin] 800 mg PO BID 02/10/15 [History] sitaGLIPtin PHOSPHATE [Januvia] 100 mg PO DAILY 02/10/15 [History] traMADol HCL [Ultram] 50 mg PO TID 02/10/15 [History] Multivitamins, Thera [Multivitamin (formulary)] 1 tab PO DAILY 03/25/16 [History] glipiZIDE [Glipizide Xl] 10 mg PO BID 03/25/16 [History] Aspirin EC [Ecotrin Low Dose] 81 mg PO DAILY 07/08/18 [History] Valsartan/Hydrochlorothiazide [Valsartan-Hctz 160-25 mg Tab] 1 tab PO DAILY 07/08/18 [History] metFORMIN HCL [Glucophage] 500 mg PO BID 07/08/18 [History] Follow up Appointment(s)/Referral(s): Rochelle Aranda MD [Primary Care Provider] - 1-2 days
[2018-07-11 15:19] VITALS: BP 179/89; PULSE 84; TEMP 99
== END 2018-07-11 17:29 | DRG 641 ==
LOC: EC 19:02 → 4SSUR 21:46
PROVIDERS: ADMIT Hospitalist; ATTEND Hospitalist
DX: E86.0 Dehydration (principal); F05 Delirium due to known physiological condition; B35.1 Tinea unguium; E11.9 Type 2 diabetes mellitus without complications; I10 Essential (primary) hypertension; I69.339 Monoplegia of upper limb following cerebral infarction affecting unspecified side; I87.8 Other specified disorders of veins; R62.7 Adult failure to thrive; Z79.82 Long term (current) use of aspirin; Z79.84 Long term (current) use of oral hypoglycemic drugs; Z79.899 Other long term (current) drug therapy; Z82.49 Family history of ischemic heart disease and other diseases of the circulatory system; Z83.3 Family history of diabetes mellitus; M54.2 Cervicalgia; G30.9 Alzheimer's disease, unspecified; F02.80 Dementia in other diseases classified elsewhere, unspecified severity, without behavioral disturbance, psychotic disturbance, mood disturbance, and anxiety; Z88.1 Allergy status to other antibiotic agents; Z88.0 Allergy status to penicillin
CPT/HCPCS: 36415; 70450; 71046; 80053; 80306; 81001; 82140; 83036; 84484; 85025; 85610; 85730; 93005; 94760; 96365; 96366; 99285

== ENCOUNTER 2018-07-23 00:07 | Inpatient (IN) | payer MEDICARE, BC ==
--- NOTE | 2018-07-23 00:50 | ED ---
Altered Mental Status HPI - General Chief Complaint: Altered Mental Status Stated Complaint: altered mental status Time Seen by Provider: 07/23/18 00:16 Source: EMS Mode of arrival: EMS Limitations: altered mental status (Patient with underlying dementia and suspected delirium) - History of Present Illness Initial Comments: Patient is a 73-year-old man sent from intermediate to be evaluate for altered mental status. The patient reportedly less responsive than usual. Patient being considered for urinary tract infection at the intermediate, reportedly his urine was darker and cloudy. Patient's family members arrived at bedside during my exam and stated that he has not been speaking to them much or going on one half weeks. He has not been ambulating. He has been incontinent. This is a change from prior to entering the hospital to half weeks ago, when the patient walk at home with a walker. [facility] has sent labs that accompany the rashid russell. Blood drawn on Wednesday reveals leukocytosis with a white count of 16.9 thousand chest x-ray on that same date reported as no acute finding. MD Complaint: altered mental status, decreased responsiveness - Related Data Home Medications Medication Instructions Recorded Confirmed Gabapentin [Neurontin] 800 mg PO BID 02/10/15 07/08/18 sitaGLIPtin PHOSPHATE [Januvia] 100 mg PO DAILY 02/10/15 07/08/18 traMADol HCL [Ultram] 50 mg PO TID 02/10/15 07/08/18 Multivitamins, Thera [Multivitamin 1 tab PO DAILY 03/25/16 07/08/18 (formulary)] glipiZIDE [Glipizide Xl] 10 mg PO BID 03/25/16 07/08/18 Aspirin EC [Ecotrin Low Dose] 81 mg PO DAILY 07/08/18 07/08/18 Valsartan/Hydrochlorothiazide 1 tab PO DAILY 07/08/18 07/08/18 [Valsartan-Hctz 160-25 mg Tab] metFORMIN HCL [Glucophage] 500 mg PO BID 07/08/18 07/08/18 Allergies Allergy/AdvReac Type Severity Reaction Status Date / Time Penicillins Allergy Mild Rash/Hives Verified 07/23/18 00:19 ceftriaxone [From Rocephin] Allergy Unknown Verified 07/23/18 00:19 doxycycline Allergy Unknown Verified 07/23/18 00:19 Review of Systems ROS Statement: Those systems with pertinent positive or pertinent negative responses have been documented in the HPI. ROS Other: All systems not noted in ROS Statement are negative. Limitations: ROS unobtainable due to patients medical condition (Underlying dementia and suspected delirium) Past Medical History Past Medical History: CVA/TIA, Diabetes Mellitus, Hypertension, Syncope Additional Past Medical History / Comment(s): cva 2013-left hand and arm weakness, shingles 2013 or 2014, gout, on abx for lt great toe infection,family stated he lost the nail on it., chronic neck/back pain History of Any Multi-Drug Resistant Organisms: None Reported Past Surgical History: Appendectomy, Back Surgery, Tonsillectomy Additional Past Surgical History / Comment(s): CAROTID ENDARt, KNEE SURGERY- arthroscopic, fusion C5-C7 with screw. Skin cells removed from bilat. side of face.pain clinic procdures(inj) Past Anesthesia/Blood Transfusion Reactions: Motion Sickness Past Psychological History: No Psychological Hx Reported Smoking Status: Never smoker - Past Family History Mother Family Medical History: Diabetes Mellitus, Myocardial Infarction ([place]) Father Family Medical History: CVA/TIA Brother(s) Family Medical History: CVA/TIA General Exam General appearance: in no apparent distress, other (Initially on the exam patient appeared to be sleeping did become alert to tactile stimuli however patient is nonverbal. ) Head exam: Present: atraumatic, normocephalic Eye exam: Present: normal appearance, PERRL, EOMI. Absent: scleral icterus, conjunctival injection ENT exam: Present: mucous membranes dry Respiratory exam: Present: normal lung sounds bilaterally, rhonchi. Absent: respiratory distress, wheezes, rales, stridor Cardiovascular Exam: Present: regular rate, normal rhythm, normal heart sounds. Absent: systolic murmur, diastolic murmur, rubs, gallop GI/Abdominal exam: Present: soft. Absent: tenderness, guarding, rebound, rigid, mass Extremities exam: Present: normal capillary refill, other (Toes of the left forefoot are dusky.). Absent: pedal edema, calf tenderness Neurological exam: Present: alert, CN II-XII intact, other ( Does follow examiner with eyes. Will squeeze fingers to command.). Absent: oriented X3 Skin exam: Present: warm, dry, normal color, other (Stage II decubitus right heel.). Absent: rash Course Vital Signs 07/23/18 07/23/18 07/23/18 00:09 00:36 01:10 Temperature 98.9 F Pulse Rate 83 88 88 Respiratory 18 Rate Blood Pressure 97/67 111/66 101/66 O2 Sat by Pulse 93 L 93 L 97 Oximetry 07/23/18 07/23/18 01:40 02:20 Temperature Pulse Rate 87 86 Respiratory 16 16 Rate Blood Pressure 115/67 101/68 O2 Sat by Pulse 98 95 Oximetry Medical Decision Making - Lab Data Result diagrams: 07/23/18 00:20 07/23/18 00:20 Lab Results 07/23/18 07/23/18 07/23/18 Range/Units 00:20 00:20 00:20 WBC 12.7 H (3.8-10.6) k/uL RBC 4.32 (4.30-5.90) m/uL Hgb 12.7 L (13.0-17.5) gm/dL Hct 40.0 (39.0-53.0) % MCV 92.6 (80.0-100.0) fL MCH 29.5 (25.0-35.0) pg MCHC 31.9 (31.0-37.0) g/dL RDW 12.7 (11.5-15.5) % Plt Count 317 D (150-450) k/uL Neutrophils % 80 % Lymphocytes % 13 % Monocytes % 5 % Eosinophils % 1 % Basophils % 0 % Neutrophils # 10.1 H (1.3-7.7) k/uL Lymphocytes # 1.7 (1.0-4.8) k/uL Monocytes # 0.6 (0-1.0) k/uL Eosinophils # 0.1 (0-0.7) k/uL Basophils # 0.0 (0-0.2) k/uL PT 10.1 (9.0-12.0) sec INR 0.9 (<1.2) APTT 25.4 (22.0-30.0) sec Sodium 132 L (137-145) mmol/L Potassium 4.7 (3.5-5.1) mmol/L Chloride 97 L (98-107) mmol/L Carbon Dioxide 24 (22-30) mmol/L Anion Gap 11 mmol/L BUN 96 H (9-20) mg/dL Creatinine 2.01 H (0.66-1.25) mg/dL Est GFR (CKD-EPI)AfAm 37 (>60 ml/min/1.73 sqM) Est GFR (CKD-EPI)NonAf 32 (>60 ml/min/1.73 sqM) Glucose 313 H (74-99) mg/dL Plasma Lactic Acid Ignacio (0.7-2.0) mmol/L Calcium 8.3 L (8.4-10.2) mg/dL Total Bilirubin 0.5 (0.2-1.3) mg/dL AST 54 (17-59) U/L ALT 41 (21-72) U/L Alkaline Phosphatase 78 (38-126) U/L Troponin I (0.000-0.034) ng/mL Total Protein 5.7 L (6.3-8.2) g/dL Albumin 2.8 L (3.5-5.0) g/dL Urine Color Urine Appearance (Clear) Urine pH (5.0-8.0) Ur Specific [place] (1.001-1.035) Urine Protein (Negative) Urine Glucose (UA) (Negative) Urine Ketones (Negative) Urine Blood (Negative) Urine Nitrite (Negative) Urine Bilirubin (Negative) Urine Urobilinogen (<2.0) mg/dL Ur Leukocyte Esterase (Negative) Urine Opiates Screen (NotDetected) Ur Oxycodone Screen (NotDetected) Urine Methadone Screen (NotDetected) Ur Propoxyphene Screen (NotDetected) Ur Barbiturates Screen (NotDetected) U Tricyclic Antidepress (NotDetected) Ur Phencyclidine Scrn (NotDetected) Ur Amphetamines Screen (NotDetected) U Methamphetamines Scrn (NotDetected) U Benzodiazepines Scrn (NotDetected) Urine Cocaine Screen (NotDetected) U Marijuana (THC) Screen (NotDetected) 07/23/18 07/23/18 07/23/18 Range/Units 00:20 00:20 00:34 WBC (3.8-10.6) k/uL RBC (4.30-5.90) m/uL Hgb (13.0-17.5) gm/dL Hct (39.0-53.0) % MCV (80.0-100.0) fL MCH (25.0-35.0) pg MCHC (31.0-37.0) g/dL RDW (11.5-15.5) % Plt Count (150-450) k/uL Neutrophils % % Lymphocytes % % Monocytes % % Eosinophils % % Basophils % % Neutrophils # (1.3-7.7) k/uL Lymphocytes # (1.0-4.8) k/uL Monocytes # (0-1.0) k/uL Eosinophils # (0-0.7) k/uL Basophils # (0-0.2) k/uL PT (9.0-12.0) sec INR (<1.2) APTT (22.0-30.0) sec Sodium (137-145) mmol/L Potassium (3.5-5.1) mmol/L Chloride (98-107) mmol/L Carbon Dioxide (22-30) mmol/L Anion Gap mmol/L BUN (9-20) mg/dL Creatinine (0.66-1.25) mg/dL Est GFR (CKD-EPI)AfAm (>60 ml/min/1.73 sqM) Est GFR (CKD-EPI)NonAf (>60 ml/min/1.73 sqM) Glucose (74-99) mg/dL Plasma Lactic Acid Ignacio 2.0 (0.7-2.0) mmol/L Calcium (8.4-10.2) mg/dL Total Bilirubin (0.2-1.3) mg/dL AST (17-59) U/L ALT (21-72) U/L Alkaline Phosphatase (38-126) U/L Troponin I 0.025 (0.000-0.034) ng/mL Total Protein (6.3-8.2) g/dL Albumin (3.5-5.0) g/dL Urine Color Yellow Urine Appearance Clear (Clear) Urine pH 5.0 (5.0-8.0) Ur Specific [place] 1.017 (1.001-1.035) Urine Protein Negative (Negative) Urine Glucose (UA) 4+ H (Negative) Urine Ketones Negative (Negative) Urine Blood Negative (Negative) Urine Nitrite Negative (Negative) Urine Bilirubin Negative (Negative) Urine Urobilinogen <2.0 (<2.0) mg/dL Ur Leukocyte Esterase Negative (Negative) Urine Opiates Screen Not Detected (NotDetected) Ur Oxycodone Screen Not Detected (NotDetected) Urine Methadone Screen Not Detected (NotDetected) Ur Propoxyphene Screen Not Detected (NotDetected) Ur Barbiturates Screen Not Detected (NotDetected) U Tricyclic Antidepress Not Detected (NotDetected) Ur Phencyclidine Scrn Not Detected (NotDetected) Ur Amphetamines Screen Not Detected (NotDetected) U Methamphetamines Scrn Not Detected (NotDetected) U Benzodiazepines Scrn Not Detected (NotDetected) Urine Cocaine Screen Not Detected (NotDetected) U Marijuana (THC) Screen Not Detected (NotDetected) - EKG Data -: EKG Interpreted by [facility] EKG shows normal: sinus rhythm, axis (Normal), intervals (NE interval is 224 ms, prolonged consistent with first-degree AV block. QRS duration 88 ms, QTC 423 ms, both normal), QRS complexes (Normal) Rate: normal (Rate approximately 88 bpm) Interpretation: nonspecific ST-T wave changes Disposition Clinical Impression: Altered mental status, Dehydration Disposition: ADMITTED IP TO THIS [facility] Condition: Poor Referrals: Carl Bhatti MD [Primary Care Provider] - 1-2 days
[2018-07-23 01:00] LABS: Appearance,Urine Clear (Clear); Bilirubin,Urine Negative (Negative); Blood,Urine Negative (Negative); Color,Urine Yellow; Glucose,Urine (UA) 4+ (Negative); Ketones,Urine Negative (Negative); Leukocyte Esterase,Urine Negative (Negative); Nitrite,Urine Negative (Negative); Protein,Urine Negative (Negative); Specific Gravity,Urine 1.017 (1.001-1.035); Urobilinogen,Urine <2.0 mg/dL (<2.0)
[2018-07-23 01:09] LABS: Amphetamine Screen,Urine Not Detected (NotDetected); Barbiturate Screen,Urine Not Detected (NotDetected); Benzodiazepines Screen,Urine Not Detected (NotDetected); Cocaine Screen,Urine Not Detected (NotDetected); Methadone Screen, Urine Not Detected (NotDetected); Opiate Screen,Urine Not Detected (NotDetected); Oxycodone Screen, Urine Not Detected (NotDetected); Phencyclidine Screen,Urine Not Detected (NotDetected); Tricyclic Antidepressant,Urine Not Detected (NotDetected); Urn Cannabinoid Scrn Not Detected (NotDetected)
--- NOTE | 2018-07-23 01:14 | XR ---
EXAM: XR Chest, 1 View CLINICAL HISTORY: ITS.REASON XR Reason: altered mental status TECHNIQUE: Frontal view of the chest. COMPARISON: No relevant prior studies available. FINDINGS: Lungs: Unremarkable. No consolidation. Pleural space: Unremarkable. No pneumothorax. Heart: No pneumomediastinum. Mediastinum: Unremarkable. Bones/joints: No definite fracture. IMPRESSION: No acute findings.
--- NOTE | 2018-07-23 01:19 | CT ---
EXAM: CT Head Without Intravenous Contrast CLINICAL HISTORY: ITS.REASON CT Reason: altered mental status TECHNIQUE: Axial computed tomography images of the head/brain without intravenous contrast. This CT exam was performed using one or more of the following dose reduction techniques: automated exposure control, adjustment of the mA and/or kV according to patient size, and/or use of iterative reconstruction technique. COMPARISON: 07/08 FINDINGS: Brain: No acute hemorrhage or infarction. Chronic changes in the right centrum semiovale ovale and throughout the white matter. Ventricles: Unremarkable. No ventriculomegaly. Bones/joints: No acute fracture. Soft tissues: Unremarkable. Sinuses: No fluid levels. Mastoid air cells: Unremarkable as visualized. No mastoid effusion. IMPRESSION: No acute findings.
[2018-07-23 01:25] LABS: Basophils % (A) 0 %; Eosinophils # (A) 0.1 k/uL (0-0.7); Eosinophils % (A) 1 %; HGB 12.7 gm/dL (13.0-17.5); Lymphocytes # (A) 1.7 k/uL (1.0-4.8); Lymphocytes % (A) 13 %; MCH 29.5 pg (25.0-35.0); MCHC 31.9 g/dL (31.0-37.0); MCV 92.6 fL (80.0-100.0); Mean Platelet Volume 7.9; Monocytes # (A) 0.6 k/uL (0-1.0); Monocytes % (A) 5 %; Neutrophils # (A) 10.1 k/uL (1.3-7.7); Neutrophils % (A) 80 %; RBC 4.32 m/uL (4.30-5.90); RDW 12.7 % (11.5-15.5); WBC 12.7 k/uL (3.8-10.6)
[2018-07-23 01:33] LABS: Albumin 2.8 g/dL (3.5-5.0); Calcium 8.3 mg/dL (8.4-10.2); Potassium 4.7 mmol/L (3.5-5.1); Total Bilirubin 0.5 mg/dL (0.2-1.3); Total Protein 5.7 g/dL (6.3-8.2)
[2018-07-23 01:43] LABS: INR 0.9 (<1.2); Partial Thromboplastin Time 25.4 sec (22.0-30.0); Platelet Count 317 k/uL (150-450); Prothrombin Time 10.1 sec (9.0-12.0)
[2018-07-23] MEDS ORDERED: LEVOFLOXACIN 750MG-D5W PMX 750 MG in DEXTROSE/WATER 1 150ML.BAG IVPB STA (03:10)
[2018-07-23] MEDS ORDERED: ONDANSETRON 4 MG/2 ML VIAL IVP PRN (03:35)
[2018-07-23] MEDS ORDERED: NALOXONE 0.4 MG/ML 1 ML VIAL IV PRN (03:35)
[2018-07-23] MEDS: SODIUM CHLORIDE 0.9% 1,000 ML IV SCH ×3 (04:36→22:26)
[2018-07-23 07:02] LABS: Glucose,Whole Blood 335 mg/dL (75-99)
[2018-07-23] MEDS ORDERED: VALSARTAN 160 MG TAB PO SCH (09:00)
[2018-07-23] MEDS ORDERED: metFORMIN 500 MG TAB PO SCH (09:00)
[2018-07-23] MEDS ORDERED: HYDROCHLOROTHIAZIDE 25 MG TAB PO SCH (09:00)
[2018-07-23] MEDS ORDERED: traMADol 50 MG TAB PO SCH (09:00)
[2018-07-23] MEDS ORDERED: GABAPENTIN 400 MG CAP PO SCH (09:00)
[2018-07-23] MEDS: ASPIRIN 81 MG PO SCH (09:16)
[2018-07-23] MEDS: FAMOTIDINE 20 MG TAB PO SCH ×2 (09:17→22:26)
[2018-07-23] MEDS: MULTIVITAMINS, THERA 1 EACH TAB PO SCH (09:17)
[2018-07-23] MEDS: LINAGLIPTIN 5 MG TABLET PO SCH (09:17)
[2018-07-23] MEDS: glipiZIDE 5 MG TAB PO SCH ×2 (09:17→22:27)
[2018-07-23 11:59] LABS: Glucose,Whole Blood 381 mg/dL (75-99)
[2018-07-23 13:43] VITALS: BMI 22.0
--- NOTE | 2018-07-23 14:37 | P.HPIM ---
History of Present Illness 73-year-old male was sent in from senior care for altered mental status patient doesn't have any UTI-like symptoms or any other signs or symptoms of sepsis patient is quite a bit dehydrated patient doesn't give much of the history patient was apparently confused patient has not been eating or drinking well. Patient does have transferred her Alzheimer's dementia. I discharged him back from my service about the couple weeks ago to subacute rehabilitation. White count is bit elevated but coming down appears to be reactive no cough. Patient's creatinine went up to around 2.5 baseline around 1. Seeming IV fluids but the patient functionality is extremely poor even at the senior care and didn't do much of rehabilitation at that place. I had a lengthy discussion with the . Patient is presently DO NOT RESUSCITATE and the patient is more appropriate for hospice considering his extremely poor functionality and advance to dementia may be Alzheimer's type and his functionality is not expected to improve significantly. May improve a bit with hydration. I'll consult hospice for informational visit Review of Systems Unable to obtain due to his clinical condition Past Medical History Past Medical History: CVA/TIA, Diabetes Mellitus, Hypertension, Syncope Additional Past Medical History / Comment(s): cva 2012-left hand and arm weakness, shingles 2013 or 2014, gout, on abx for lt great toe infection,family stated he lost the nail on it., chronic neck/back pain History of Any Multi-Drug Resistant Organisms: None Reported Past Surgical History: Appendectomy, Back Surgery, Tonsillectomy Additional Past Surgical History / Comment(s): CAROTID ENDARt, KNEE SURGERY- arthroscopic, fusion C5-C7 with screw. Skin cells removed from bilat. side of fa ce.pain clinic procdures(inj) Past Anesthesia/Blood Transfusion Reactions: Motion Sickness Past Psychological History: No Psychological Hx Reported Smoking Status: Never smoker Past Alcohol Use History: Unable to Obtain Additional Past Alcohol Use History / Comment(s): never smoked but has chewed tobacco since age 8 Past Drug Use History: None Reported - Past Family History Mother Family Medical History: Diabetes Mellitus, Myocardial Infarction ([place]) Father Family Medical History: CVA/TIA Brother(s) Family Medical History: CVA/TIA Medications and Allergies Home Medications Medication Instructions Recorded Confirmed Type Gabapentin [Neurontin] 800 mg PO BID 02/10/15 07/23/18 History sitaGLIPtin PHOSPHATE [Januvia] 100 mg PO DAILY 02/10/15 07/23/18 History traMADol HCL [Ultram] 50 mg PO TID 02/10/15 07/23/18 History Multivitamins, Thera [Multivitamin 100 tab PO DAILY 03/25/16 07/23/18 History (formulary)] glipiZIDE [Glipizide Xl] 10 mg PO BID 03/25/16 07/23/18 History Aspirin EC [Ecotrin Low Dose] 81 mg PO DAILY 07/08/18 07/23/18 History Valsartan/Hydrochlorothiazide 100 mg PO DAILY 07/08/18 07/23/18 History [Valsartan-Hctz 160-25 mg Tab] metFORMIN HCL [Glucophage] 500 mg PO BID 07/08/18 07/23/18 History Nicotine 21Mg/24Hr Patch [Habitrol] 1 patch TOPICAL DAILY 07/23/18 07/23/18 History Allergies Allergy/AdvReac Type Severity Reaction Status Date / Time Penicillins Allergy Mild Rash/Hives Verified 07/23/18 07:19 ceftriaxone [From Rocephin] Allergy Unknown Verified 07/23/18 07:19 doxycycline Allergy Unknown Verified 07/23/18 07:19 Physical Exam Vitals: Vital Signs Temp Pulse Pulse Resp BP BP Pulse Ox 07/23/18 05:13 98.4 F 88 12 100/62 94 L 07/23/18 04:39 97.8 F 84 18 102/66 96 07/23/18 04:10 93 96/68 07/23/18 03:40 87 110/62 07/23/18 03:31 89 107/69 07/23/18 03:10 87 107/69 07/23/18 02:40 86 100/64 07/23/18 02:30 89 101/68 07/23/18 02:20 86 16 101/68 95 07/23/18 01:40 87 16 115/67 98 07/23/18 01:10 88 101/66 97 07/23/18 00:36 88 111/66 93 L 07/23/18 00:09 98.9 F 83 18 97/67 93 L Intake and Output 07/22/18 07/23/18 07/23/18 22:59 06:59 14:59 Other: Voiding Method Diaper Diaper Incontinent Incontinent # Voids 1 Weight 71.668 kg 71.668 kg PHYSICAL EXAMINATION: GENERAL: The patient is alert and unable to assess his orientation maybe orient ed 1 not in any acute distress. Well developed, well nourished. HEENT: Pupils are round and equally reacting to light. EOMI. No scleral icterus. No conjunctival pallor. Normocephalic, atraumatic. No pharyngeal erythema. No thyromegaly. Does have dry mucous membranes CARDIOVASCULAR: S1 and S2 present. No murmurs, rubs, or gallops. PULMONARY: Chest is clear to auscultation, no wheezing or crackles. ABDOMEN: Soft, nontender, nondistended, normoactive bowel sounds. No palpable organomegaly. MUSCULOSKELETAL: No joint swelling or deformity. EXTREMITIES: No cyanosis, clubbing, or pedal edema. NEUROLOGICAL: Gross neurological examination did not reveal any focal deficits. Skin generalized weakness with muscle atrophy both legs SKIN: No rashes. Results CBC & Chem 7: 07/23/18 00:20 07/23/18 00:20 Labs: Abnormal Lab Results - Last 24 Hours (Table) 07/23/18 07/23/18 07/23/18 Range/Units 00:20 00:20 00:34 WBC 12.7 H (3.8-10.6) k/uL Hgb 12.7 L (13.0-17.5) gm/dL Neutrophils # 10.1 H (1.3-7.7) k/uL Sodium 132 L (137-145) mmol/L Chloride 97 L (98-107) mmol/L BUN 96 H (9-20) mg/dL Creatinine 2.01 H (0.66-1.25) mg/dL Glucose 313 H (74-99) mg/dL POC Glucose (mg/dL) (75-99) mg/dL Calcium 8.3 L (8.4-10.2) mg/dL Total Protein 5.7 L (6.3-8.2) g/dL Albumin 2.8 L (3.5-5.0) g/dL Urine Glucose (UA) 4+ H (Negative) 07/23/18 07/23/18 Range/Units 07:00 11:57 WBC (3.8-10.6) k/uL Hgb (13.0-17.5) gm/dL Neutrophils # (1.3-7.7) k/uL Sodium (137-145) mmol/L Chloride (98-107) mmol/L BUN (9-20) mg/dL Creatinine (0.66-1.25) mg/dL Glucose (74-99) mg/dL POC Glucose (mg/dL) 335 H 381 H (75-99) mg/dL Calcium (8.4-10.2) mg/dL Total Protein (6.3-8.2) g/dL Albumin (3.5-5.0) g/dL Urine Glucose (UA) (Negative) Thrombosis Risk Factor Assmnt - Choose All That Apply Any of the Below Risk Factors Present?: Yes Each Factor Represents 1 point: Medical pt on bed rest Other Risk Factors: Yes Each Risk Factor Represents 2 Points: Age 61-74 years Other congenital or acquired thrombophilia - If yes, enter type in comment: No Thrombosis Risk Factor Assessment Total Risk Factor Score: 3 Thrombosis Risk Factor Assessment Level: Moderate Risk Assessment and Plan Plan: -Metabolic encephalopathy secondary to intravascular depletion severe dehydration from poor oral intake is again secondary to advanced dementia patient was started on IV fluids. This will be an ongoing problem. -Hyponatremia hypotonic hyponatremia patient the was started on IV fluids hyponatremia is expected to improve -Type 2 diabetes mellitus uncontrolled blood sugars patient will be resumed on his home medications except for metformin because of poor renal function along with sliding scale -Acute renal failure secondary to intravascular depletion dehydration -Hypertension rather sudden will be held diuretic therapy will be held because of his dehydration and acute renal failure -Advanced dementia externally poor prognosis patient probably has dementia of Alzheimer's type hospice will be consulted. -Leukocytosis reactive in nature Cor status: DO NOT RESUSCITATE
[2018-07-23 17:08] LABS: Glucose,Whole Blood 344 mg/dL (75-99)
[2018-07-23] MEDS: GABAPENTIN 100 MG CAP PO SCH ×2 (17:56→22:27)
[2018-07-23] MEDS: INSULIN ASPART (NovoLOG) 100 UNIT/ML VIAL SQ SCH ×2 (17:57→22:27)
[2018-07-23] MEDS: ACETAMINOPHEN TAB 325 MG TAB PO PRN (17:59)
[2018-07-23 21:28] LABS: Glucose,Whole Blood 291 mg/dL (75-99)
--- NOTE | 2018-07-23 22:24 | P.CNNES ---
History of Present Illness Consult date: 07/23/18 Reason for Consult: Altered mental status History of Present Illness: Patient is a 73-year-old male with history of en face dementia, CVA with left hemiplegia, was brought to the hospital for worsening of his baseline mental status. Patient underwent computed tomography scan of the head, which revealed no acute process. There is evidence of old encephalomalacia involving the right parietal region. Chest x-ray shows no acute findings. EKG with sinus rhythm with first-degree AV block. Blood tests showed WBC 12.7 hemoglobin 12.7 and platelets are 317. Chem-7 shows sodium 132, potassium 4.7, BU and is 96, creatinine 2.01. Hemoglobin A1c 9.4, liver functions normal. Review of Systems ROS unobtainable: due to mental status Past Medical History Past Medical History: CVA/TIA, Diabetes Mellitus, Hypertension, Syncope Additional Past Medical History / Comment(s): cva 2012-left hand and arm weakness, shingles 2012 or 2013, gout, on abx for lt great toe infection,family stated he lost the nail on it., chronic neck/back pain History of Any Multi-Drug Resistant Organisms: None Reported Past Surgical History: Appendectomy, Back Surgery, Tonsillectomy Additional Past Surgical History / Comment(s): CAROTID ENDARt, KNEE SURGERY- arthroscopic, fusion C5-C7 with screw. Skin cells removed from bilat. side of face.pain clinic procdures(inj) Past Anesthesia/Blood Transfusion Reactions: Motion Sickness Past Psychological History: No Psychological Hx Reported Smoking Status: Never smoker Past Alcohol Use History: Unable to Obtain Additional Past Alcohol Use History / Comment(s): never smoked but has chewed tobacco since age 8 Past Drug Use History: None Reported - Past Family History Mother Family Medical History: Diabetes Mellitus, Myocardial Infarction ([place]) Father Family Medical History: CVA/TIA Brother(s) Family Medical History: CVA/TIA Medications and Allergies Home Medications Medication Instructions Recorded Confirmed Type Gabapentin [Neurontin] 800 mg PO BID 02/10/15 07/23/18 History sitaGLIPtin PHOSPHATE [Januvia] 100 mg PO DAILY 02/10/15 07/23/18 History traMADol HCL [Ultram] 50 mg PO TID 02/10/15 07/23/18 History Multivitamins, Thera [Multivitamin 100 tab PO DAILY 03/25/16 07/23/18 History (formulary)] glipiZIDE [Glipizide Xl] 10 mg PO BID 03/25/16 07/23/18 History Aspirin EC [Ecotrin Low Dose] 81 mg PO DAILY 07/08/18 07/23/18 History Valsartan/Hydrochlorothiazide 100 mg PO DAILY 07/08/18 07/23/18 History [Valsartan-Hctz 160-25 mg Tab] metFORMIN HCL [Glucophage] 500 mg PO BID 07/08/18 07/23/18 History Nicotine 21Mg/24Hr Patch [Habitrol] 1 patch TOPICAL DAILY 07/23/18 07/23/18 History Allergies Allergy/AdvReac Type Severity Reaction Status Date / Time Penicillins Allergy Mild Rash/Hives Verified 07/23/18 07:19 [facility] Allergy Unknown Verified 07/23/18 07:19 doxycycline Allergy Unknown Verified 07/23/18 07:19 Physical Examination - Vital Signs Vital Signs: Vital Signs Temp Pulse Pulse Resp BP BP Pulse Ox 07/23/18 20:24 98.6 F 94 12 107/68 95 07/23/18 14:25 97.8 F 96 16 113/67 97 07/23/18 05:13 98.4 F 88 12 100/62 94 L 07/23/18 04:39 97.8 F 84 18 102/66 96 07/23/18 04:10 93 96/68 07/23/18 03:40 87 110/62 07/23/18 03:31 89 107/69 07/23/18 03:10 87 107/69 07/23/18 02:40 86 100/64 07/23/18 02:30 89 101/68 07/23/18 02:20 86 16 101/68 95 07/23/18 01:40 87 16 115/67 98 07/23/18 01:10 88 101/66 97 07/23/18 00:36 88 111/66 93 L 07/23/18 00:09 98.9 F 83 18 97/67 93 L Intake and Output 07/23/18 07/23/18 07/23/18 06:59 14:59 22:59 Intake Total 1000 Balance 1000 Intake: Oral 1000 Other: Voiding Method Diaper Diaper Diaper Incontinent Incontinent Incontinent # Voids 1 2 3 Weight 71.668 kg 71.668 kg On examination patient is an elderly male, who is laying comfortably in the bed. Patient has severe dementia, oriented 1 to his name. Could not tell the month, the year or where he is at. Speech is very limited, but there was no obvious dysarthria. Pupils are round and reacting. Visual casanova could not be tested. Face appears symmetric. Patient has left spastic hemiplegia. Patient moves right arm and right leg much better. [employer] Service Advisor is about 4+ to 5-in the right hand, but spastic on the left. Patient has a blister over the right heel medially. Reflexes are diminished.patient has positive grasp reflex. Results - Laboratory Findings CBC and BMP: 07/23/18 00:20 07/23/18 00:20 Abnormal Lab Findings: Abnormal Labs 07/23/18 07/23/18 07/23/18 00:20 00:20 00:34 WBC 12.7 H Hgb 12.7 L Neutrophils # 10.1 H Sodium 132 L Chloride 97 L BUN 96 H Creatinine 2.01 H Glucose 313 H POC Glucose (mg/dL) Calcium 8.3 L Total Protein 5.7 L Albumin 2.8 L Urine Glucose (UA) 4+ H 07/23/18 07/23/18 07/23/18 07:00 11:57 17:01 WBC Hgb Neutrophils # Sodium Chloride BUN Creatinine Glucose POC Glucose (mg/dL) 335 H 381 H 344 H Calcium Total Protein Albumin Urine Glucose (UA) 07/23/18 21:18 WBC Hgb Neutrophils # Sodium Chloride BUN Creatinine Glucose POC Glucose (mg/dL) 291 H Calcium Total Protein Albumin Urine Glucose (UA) Assessment and Plan Assessment: * Altered mental status, likely related to metabolic encephalopathy from acute renal failure, dehydration. * Advanced dementia. Probably Alzheimer's, with some vascular component. * History of CVA with left hemiplegia. * Diabetes, poorly controlled Plan: * Treatment of dehydration, worsening of renal functions as per internal medicine. * Patient has advanced dementia. Hospice care is being considered. * Consider treatment with Aricept and Namenda, although uncertain if will be beneficial at this stage of dementia. * Continue aspirin. * Will sign off. Please call neurology if you have any further concerns.
[2018-07-23] MEDS: HEPARIN SODIUM,PORCINE 5,000 UNIT/ML 1 ML VIAL SQ SCH (22:27)
[2018-07-24] MEDS: SODIUM CHLORIDE 0.9% 1,000 ML IV SCH ×3 (04:48→21:51)
[2018-07-24 07:27] LABS: Calcium 8.2 mg/dL (8.4-10.2); Potassium 4.5 mmol/L (3.5-5.1)
[2018-07-24 07:27] LABS: Glucose,Whole Blood 224 mg/dL (75-99)
[2018-07-24] MEDS: ASPIRIN 81 MG PO SCH (08:18)
[2018-07-24] MEDS: LINAGLIPTIN 5 MG TABLET PO SCH (08:18)
[2018-07-24] MEDS: FAMOTIDINE 20 MG TAB PO SCH ×2 (08:18→21:52)
[2018-07-24] MEDS: glipiZIDE 5 MG TAB PO SCH ×2 (08:18→21:52)
[2018-07-24] MEDS: HEPARIN SODIUM,PORCINE 5,000 UNIT/ML 1 ML VIAL SQ SCH ×2 (08:18→21:52)
[2018-07-24] MEDS: MULTIVITAMINS, THERA 1 EACH TAB PO SCH (08:18)
[2018-07-24] MEDS: INSULIN ASPART (NovoLOG) 100 UNIT/ML VIAL SQ SCH ×4 (08:19→21:52)
[2018-07-24] MEDS: GABAPENTIN 100 MG CAP PO SCH ×3 (08:23→21:52)
[2018-07-24 12:11] LABS: Glucose,Whole Blood 254 mg/dL (75-99)
--- NOTE | 2018-07-24 16:41 | P.PN ---
Subjective 73-year-old male was admitted secondary to metabolic encephalopathy from dehydration patient looks much better today. Although his prognosis is extr adama poor because of his advanced dementia and family is leaning towards hospice which I believe is the most appropriate care for the patient. Serum creatinine improved will cut down the IV fluids to 75 mL per hour Review of systems: Unable to obtain All inpatient medications were reviewed and appropriate changes in these medications as dictated in the interval history and assessment and plan. Objective - Vital Signs Vital signs: Vital Signs Temp 98.6 F 07/24/18 15:00 Pulse 86 07/24/18 15:00 Resp 18 07/24/18 15:00 BP 146/75 07/24/18 15:00 Pulse Ox 95 07/24/18 15:00 Intake & Output 07/23/18 07/24/18 07/24/18 18:59 06:59 18:59 Intake Total 1000 1000 Balance 1000 1000 Weight 71.668 kg Intake: Intake, IV Titration 1000 Amount Sodium Chloride 0.9% 1, 1000 000 ml @ 125 mls/hr IV . Q8H [facility] Rx#:[id number] Oral 1000 Other: Voiding Method Diaper Diaper Diaper Incontinent Incontinent Incontinent # Voids 2 1 4 # Bowel Movements 1 1 - Exam PHYSICAL EXAMINATION: GENERAL: The patient is alert and unable to assess his orientation maybe oriented 1 not in any acute distress. Patient is thin built, much more awake does look better today HEENT: Pupils are round and equally reacting to light. EOMI. No scleral icterus. No conjunctival pallor. Normocephalic, atraumatic. No pharyngeal erythema. No thyromegaly. Does have dry mucous membranes CARDIOVASCULAR: S1 and S2 present. No murmurs, rubs, or gallops. PULMONARY: Chest is clear to auscultation, no wheezing or crackles. ABDOMEN: Soft, nontender, nondistended, normoactive bowel sounds. No palpable organomegaly. MUSCULOSKELETAL: No joint swelling or deformity. EXTREMITIES: No cyanosis, clubbing, or pedal edema. NEUROLOGICAL: Gross neurological examination did not reveal any focal deficits. Skin generalized weakness with muscle atrophy both legs SKIN: No rashes. - Labs CBC & Chem 7: 07/23/18 00:20 07/24/18 06:49 Labs: Abnormal Lab Results - Last 24 Hours (Table) 05/07/23/18 07/24/18 Range/Units 17:01 21:18 06:49 Sodium 135 L (137-145) mmol/L BUN 55 H (9-20) mg/dL Glucose 219 H (74-99) mg/dL POC Glucose (mg/dL) 344 H 291 H (75-99) mg/dL Calcium 8.2 L (8.4-10.2) mg/dL 07/24/18 07/24/18 Range/Units 07:10 11:55 Sodium (137-145) mmol/L BUN (9-20) mg/dL Glucose (74-99) mg/dL POC Glucose (mg/dL) 224 H 254 H (75-99) mg/dL Calcium (8.4-10.2) mg/dL Microbiology - Last 24 Hours (Table) 07/23/18 00:20 Blood Culture - Preliminary Blood No Growth after 24 hours Assessment and Plan Plan: -Metabolic encephalopathy secondary to intravascular depletion severe dehydration from poor oral intake is again secondary to advanced dementia patient was started on IV fluids. Discussion regarding hospice as mentioned above and family is leaning towards hospice possibly will be discharged tomorrow would with hospice on Wednesday -Hyponatremia hypotonic hyponatremia improved with the IV fluids -Type 2 diabetes mellitus uncontrolled blood sugars patient will be resumed on his home medications except for metformin because of poor renal function along with sliding scale -Acute renal failure secondary to intravascular depletion dehydration -Hypertension rather sudden will be held diuretic therapy will be held because of his dehydration and acute renal failure -Advanced dementia externally poor prognosis patient probably has dementia of Alzheimer's , hospice evaluated the patient. -Leukocytosis reactive in nature Code status: DO NOT RESUSCITATE
[2018-07-24 17:20] LABS: Glucose,Whole Blood 254 mg/dL (75-99)
[2018-07-24 20:50] LABS: Glucose,Whole Blood 300 mg/dL (75-99)
[2018-07-25 07:28] LABS: Glucose,Whole Blood 255 mg/dL (75-99)
[2018-07-25] MEDS: INSULIN ASPART (NovoLOG) 100 UNIT/ML VIAL SQ SCH ×4 (08:04→20:48)
[2018-07-25] MEDS: glipiZIDE 5 MG TAB PO SCH ×2 (08:05→20:45)
[2018-07-25] MEDS: FAMOTIDINE 20 MG TAB PO SCH ×2 (08:05→20:45)
[2018-07-25] MEDS: GABAPENTIN 100 MG CAP PO SCH ×3 (08:05→20:45)
[2018-07-25] MEDS: MULTIVITAMINS, THERA 1 EACH TAB PO SCH (08:05)
[2018-07-25] MEDS: LINAGLIPTIN 5 MG TABLET PO SCH (08:05)
[2018-07-25] MEDS: ASPIRIN 81 MG PO SCH (08:05)
[2018-07-25] MEDS: HEPARIN SODIUM,PORCINE 5,000 UNIT/ML 1 ML VIAL SQ SCH ×2 (08:06→20:45)
[2018-07-25] MEDS: SODIUM CHLORIDE 0.9% 1,000 ML IV SCH (08:06)
[2018-07-25 12:34] LABS: Glucose,Whole Blood 310 mg/dL (75-99)
--- NOTE | 2018-07-25 15:28 | P.PN ---
Subjective 73-year-old male was admitted secondary to metabolic encephalopathy from dehydration patient looks much better today. Although his prognosis is extr adama poor because of his advanced dementia and family is leaning towards hospice which I believe is the most appropriate care for the patient. Serum creatinine improved will cut down the IV fluids to 75 mL per hour 07/25/2018 Patient probably will be discharged to subacute rehabilitation patient says he is feeling better. Although not a reliable historian. Looks better Review of systems: Unable to obtain All inpatient medications were reviewed and appropriate changes in these medications as dictated in the interval history and assessment and plan. Objective - Vital Signs Vital signs: Vital Signs Temp 98.0 F 07/25/18 13:55 Pulse 107 H 07/25/18 13:55 Resp 20 07/25/18 13:55 BP 131/74 07/25/18 13:55 Pulse Ox 96 07/25/18 13:55 Intake & Output 07/24/18 07/25/18 07/25/18 18:59 06:59 18:59 Intake Total 520 Balance 520 Intake: Oral 520 Other: Voiding Method Diaper Diaper Diaper Incontinent Incontinent Incontinent # Voids 4 2 # Bowel Movements 1 1 - Exam PHYSICAL EXAMINATION: GENERAL: The patient is alert and unable to assess his orientation maybe oriented 1 not in any acute distress. Patient is thin built, much more awake does look better today HEENT: Pupils are round and equally reacting to light. EOMI. No scleral icterus. No conjunctival pallor. Normocephalic, atraumatic. No pharyngeal erythema. No thyromegaly. Does have dry mucous membranes CARDIOVASCULAR: S1 and S2 present. No murmurs, rubs, or gallops. PULMONARY: Chest is clear to auscultation, no wheezing or crackles. ABDOMEN: Soft, nontender, nondistended, normoactive bowel sounds. No palpable organomegaly. MUSCULOSKELETAL: No joint swelling or deformity. EXTREMITIES: No cyanosis, clubbing, or pedal edema. NEUROLOGICAL: Gross neurological examination did not reveal any focal deficits. Skin generalized weakness with muscle atrophy both legs SKIN: No rashes. - Labs CBC & Chem 7: 07/23/18 00:20 07/24/18 06:49 Labs: Abnormal Lab Results - Last 24 Hours (Table) 07/24/18 07/24/18 07/25/18 Range/Units 16:50 20:49 07:15 POC Glucose (mg/dL) 254 H 300 H 255 H (75-99) mg/dL 07/25/18 Range/Units 12:27 POC Glucose (mg/dL) 310 H (75-99) mg/dL Microbiology - Last 24 Hours (Table) 07/23/18 00:20 Blood Culture - Preliminary Blood No Growth after 48 hours Assessment and Plan Plan: -Metabolic encephalopathy secondary to intravascular depletion severe dehy dration from poor oral intake is again secondary to advanced dementia patient was started on IV fluids. Discussion regarding hospice as mentioned above and family is leaning towards hospice possibly will be discharged tomorrow would with hospice on Wednesday -Hyponatremia hypotonic hyponatremia improved with the IV fluids -Type 2 diabetes mellitus uncontrolled blood sugars patient will be resumed on his home medications except for metformin because of poor renal function along with sliding scale -Acute renal failure secondary to intravascular depletion dehydration -Hypertension rather sudden will be held diuretic therapy will be held because of his dehydration and acute renal failure -Advanced dementia externally poor prognosis patient probably has dementia of Alzheimer's , hospice evaluated the patient. -Leukocytosis reactive in nature Code status: DO NOT RESUSCITATE
[2018-07-25 17:09] LABS: Glucose,Whole Blood 258 mg/dL (75-99)
[2018-07-25 20:52] LABS: Glucose,Whole Blood 216 mg/dL (75-99)
[2018-07-26] MEDS: SODIUM CHLORIDE 0.9% 1,000 ML IV SCH ×2 (05:23→12:10)
[2018-07-26 07:13] LABS: Glucose,Whole Blood 256 mg/dL (75-99)
[2018-07-26] MEDS: INSULIN ASPART (NovoLOG) 100 UNIT/ML VIAL SQ SCH ×4 (07:39→21:17)
[2018-07-26] MEDS: HEPARIN SODIUM,PORCINE 5,000 UNIT/ML 1 ML VIAL SQ SCH ×2 (07:41→21:17)
[2018-07-26] MEDS: LINAGLIPTIN 5 MG TABLET PO SCH (07:41)
[2018-07-26] MEDS: ASPIRIN 81 MG PO SCH (07:42)
[2018-07-26] MEDS: FAMOTIDINE 20 MG TAB PO SCH ×2 (07:42→21:17)
[2018-07-26] MEDS: MULTIVITAMINS, THERA 1 EACH TAB PO SCH (07:42)
[2018-07-26] MEDS: glipiZIDE 5 MG TAB PO SCH ×2 (07:42→21:17)
[2018-07-26] MEDS: GABAPENTIN 100 MG CAP PO SCH ×3 (07:43→21:19)
[2018-07-26 12:04] LABS: Glucose,Whole Blood 388 mg/dL (75-99)
--- NOTE | 2018-07-26 15:42 | P.PN ---
Subjective 73-year-old male was admitted secondary to metabolic encephalopathy from dehydration patient looks much better today. Although his prognosis is extr adama poor because of his advanced dementia and family is leaning towards hospice which I believe is the most appropriate care for the patient. Serum creatinine improved will cut down the IV fluids to 75 mL per hour 07/25/2018 Patient probably will be discharged to subacute rehabilitation patient says he is feeling better. Although not a reliable historian. Looks better 07/26/2018 Unfortunately patient was not evaluated by hospice at [facility] Family has meeting with hospice services later today possibly will be discharged home with hospice or senior care with hospice tomorrow. Review of systems: Unable to obtain All inpatient medications were reviewed and appropriate changes in these m edications as dictated in the interval history and assessment and plan. Objective - Vital Signs Vital signs: Vital Signs Temp 98.7 F 07/26/18 14:54 Pulse 111 H 07/26/18 14:54 Resp 16 07/26/18 14:54 BP 152/80 07/26/18 14:54 Pulse Ox 96 07/26/18 14:54 Intake & Output 07/25/18 07/26/18 07/26/18 18:59 06:59 18:59 Intake Total 520 370 Balance 520 370 Intake: Oral 520 370 Other: Voiding Method Diaper Diaper Diaper Incontinent Incontinent Incontinent # Voids 3 3 3 # Bowel Movements 1 1 2 - Exam PHYSICAL EXAMINATION: GENERAL: The patient is alert and unable to assess his orientation maybe oriented 1 not in any acute distress. Patient is thin built, much more awake does look better today HEENT: Pupils are round and equally reacting to light. EOMI. No scleral icterus. No conjunctival pallor. Normocephalic, atraumatic. No pharyngeal erythema. No thyromegaly. Does have dry mucous membranes CARDIOVASCULAR: S1 and S2 present. No murmurs, rubs, or gallops. PULMONARY: Chest is clear to auscultation, no wheezing or crackles. ABDOMEN: Soft, nontender, nondistended, normoactive bowel sounds. No palpable organomegaly. MUSCULOSKELETAL: No joint swelling or deformity. EXTREMITIES: No cyanosis, clubbing, or pedal edema. NEUROLOGICAL: Gross neurological examination did not reveal any focal deficits. Skin generalized weakness with muscle atrophy both legs SKIN: No rashes. - Labs CBC & Chem 7: 07/23/18 00:20 07/24/18 06:49 Labs: Abnormal Lab Results - Last 24 Hours (Table) 07/25/18 07/25/18 07/26/18 Range/Units 16:59 20:42 07:09 POC Glucose (mg/dL) 258 H 216 H 256 H (75-99) mg/dL 07/26/18 Range/Units 11:49 POC Glucose (mg/dL) 388 H (75-99) mg/dL Microbiology - Last 24 Hours (Table) 07/23/18 00:20 Blood Culture - Preliminary Blood No Growth after 72 hours Assessment and Plan Plan: -Metabolic encephalopathy secondary to intravascular depletion severe dehydration from poor oral intake is again secondary to advanced dementia patient was started on IV fluids. Patient probably will be hospice as mentioned above -Hyponatremia hypotonic hyponatremia improved with the IV fluids -Type 2 diabetes mellitus uncontrolled -Acute renal failure secondary to intravascular depletion dehydration improved now patient is off IV fluids -Hypertension -Advanced dementia externally poor prognosis patient probably has dementia of Alzheimer's , hospice discussion today with the patient's family. -Leukocytosis reactive in nature Code status: DO NOT RESUSCITATE
[2018-07-26 17:23] LABS: Glucose,Whole Blood 347 mg/dL (75-99)
[2018-07-26 20:18] LABS: Glucose,Whole Blood 275 mg/dL (75-99)
[2018-07-27] MEDS: SODIUM CHLORIDE 0.9% 1,000 ML IV SCH ×2 (05:54→13:57)
[2018-07-27 07:28] LABS: Glucose,Whole Blood 286 mg/dL (75-99)
[2018-07-27] MEDS: MULTIVITAMINS, THERA 1 EACH TAB PO SCH (07:39)
[2018-07-27] MEDS: glipiZIDE 5 MG TAB PO SCH (07:39)
[2018-07-27] MEDS: ASPIRIN 81 MG PO SCH (07:39)
[2018-07-27] MEDS: LINAGLIPTIN 5 MG TABLET PO SCH (07:39)
[2018-07-27] MEDS: ACETAMINOPHEN TAB 325 MG TAB PO PRN ×2 (07:40→16:51)
[2018-07-27] MEDS: FAMOTIDINE 20 MG TAB PO SCH (07:40)
[2018-07-27] MEDS: GABAPENTIN 100 MG CAP PO SCH ×2 (07:45→16:51)
[2018-07-27] MEDS: HEPARIN SODIUM,PORCINE 5,000 UNIT/ML 1 ML VIAL SQ SCH (07:45)
[2018-07-27] MEDS: INSULIN ASPART (NovoLOG) 100 UNIT/ML VIAL SQ SCH ×4 (07:46→17:44)
[2018-07-27 12:08] LABS: Glucose,Whole Blood 448 mg/dL (75-99)
[2018-07-27 14:10] VITALS: BP 146/89; PULSE 103; RESP 16; TEMP 98.9
--- NOTE | 2018-07-27 15:05 | P.DS ---
Providers Date of admission: 07/23/18 14:51 Attending physician: Bryant Cobb Consults: 07/23/18 03:35 Consult Physician Routine Consulting Provider: Claudio Tsai Consult Reason/Comments: Altered mental status Do you want consulting provider notified?: Yes Primary care physician: Carl Bhatti Hospital Course: 73-year-old male was admitted secondary to metabolic encephalopathy from dehydration patient looks much better today. Although his prognosis is extremely poor because of his advanced dementia and family is leaning towards hospice which I believe is the most appropriate care for the patient. Serum creatinine improved will cut down the IV fluids to 75 mL per hour 07/25/2018 Patient probably will be discharged to subacute rehabilitation patient says he is feeling better. Although not a reliable historian. Looks better 07/26/2018 Unfortunately patient was not evaluated by hospice at [facility] Family has meeting with hospice services later today possibly will be discharged home with hospice or [facility] with hospice tomorrow. 07/27/2018 Patient will be initiated on hospice at [facility] patient is being discharged with large all other medications are being discontinued will patient will only be on comfort medications. PHYSICAL EXAMINATION: GENERAL: The patient is alert and unable to assess his orientation maybe oriented 1 not in any acute distress. Patient is thin built, much more awake does look better today HEENT: Pupils are round and equally reacting to light. EOMI. No scleral icterus. No conjunctival pallor. Normocephalic, atraumatic. No pharyngeal erythema. No thyromegaly. Does have dry mucous membranes CARDIOVASCULAR: S1 and S2 present. No murmurs, rubs, or gallops. PULMONARY: Chest is clear to auscultation, no wheezing or crackles. ABDOMEN: Soft, nontender, nondistended, normoactive bowel sounds. No palpable organomegaly. MUSCULOSKELETAL: No joint swelling or deformity. EXTREMITIES: No cyanosis, clubbing, or pedal edema. NEUROLOGICAL: Gross neurological examination did not reveal any focal deficits. Skin generalized weakness with muscle atrophy both legs SKIN: No rashes. Assessment and Plan Plan: -Metabolic encephalopathy secondary to intravascular depletion severe dehydration from poor oral intake is again improved now -Hyponatremia hypotonic hyponatremia improved with the IV fluids -Type 2 diabetes mellitus uncontrolled -Acute renal failure secondary to intravascular depletion dehydration improved now patient is off IV fluids -Hypertension -Advanced dementia externally poor prognosis patient probably has dementia of Alzheimer's , Patient will be discharged today to [facility] and hospice will be initiated there. Patient Condition at Discharge: Poor Plan - Discharge Summary Discharge Rx Participant: No New Discharge Prescriptions: Continue Multivitamins, Thera [Multivitamin (formulary)] 100 tab PO DAILY Discontinued traMADol HCL [Ultram] 50 mg PO TID Gabapentin [Neurontin] 800 mg PO BID sitaGLIPtin PHOSPHATE [Januvia] 100 mg PO DAILY glipiZIDE [Glipizide Xl] 10 mg PO BID Aspirin EC [Ecotrin Low Dose] 81 mg PO DAILY metFORMIN HCL [Glucophage] 500 mg PO BID Valsartan/Hydrochlorothiazide [Valsartan-Hctz 160-25 mg Tab] 100 mg PO DAILY Nicotine 21Mg/24Hr Patch [Habitrol] 1 patch TOPICAL DAILY Discharge Medication List Multivitamins, Thera [Multivitamin (formulary)] 100 tab PO DAILY 03/25/16 [H istory] Follow up Appointment(s)/Referral(s): Carl Bhatti MD [Primary Care Provider] - 1-2 days Karyn Fierro, [NON-STAFF] - As Needed [facility]
[2018-07-27 17:35] LABS: Glucose,Whole Blood 291 mg/dL (75-99)
--- NOTE | 2018-07-28 14:59 | CDI ---
Documentation Clarification Form Date: 07/28/18 From: Soco Krishnamurthy Phone: If questions call Annette Obregon @ [phone], Hours-8:30 am & 5 pm M- Nia Admit Date: 07/23/2018 2:51:00 PM Patient Name: Enrique Torres Visit Number: [id number] Discharge Date: 07/27/2018 6:13:00 PM ATTENTION: The Clinical Documentation Specialists (CDI) and [facility] Coding Staff appreciate your assistance in clarifying documentation. Please respond to the clarification below the line at the bottom and electronically sign. The CDI & [facility] Coding staff will review the response and follow-up if needed. Please note: Queries are made part of the Legal Health Record. If you have any questions, please contact the author of this message via ITS. Dr. Raya Ramires The patient has diabetes Type II uncontrolled, as indicated in ED record, H&P, consult, PNs 07/24, 07/25 & 07/26 & DS. POC glucose: 335, 381, 344, 291, 224, 254, 300, 255, 310, 258, 216, 256, 388, 347, 275, 286, 448, 291 Glucose: 313, 219 Treatment: Cover with adult NovoLOG sliding scale protocol Per [facility] 2016 - query the provider for clarification whether the patient has hyperglycemia or hypoglycemia so that the appropriate code may be reported - uncontrolled diabetes indicates that the patient's blood sugar is not at an acceptable level, because it is either too high or too low. In order to capture the severity of Illness and necessary documentation specificity, please clarify if Type 2 uncontrolled diabetes is: Hyperglycemia Hypoglycemia Other, please specify Unable to Determine Please continue to document in your progress notes and discharge summary in order to capture severity of illness and risk of mortality. Include clinical findings that support your diagnosis. Hyperglycemia MTDD
--- NOTE | 2018-07-29 07:03 | CDI ---
Documentation Clarification Form Date: 07/29/18 From: Soco Krishnamurthy Phone: If questions call Annette Obregon @ [phone], Hours-8:30 am & 5 pm M- F Admit Date: 07/23/2018 2:51:00 PM Patient Name: Enrique Torres Visit Number: [id number] Discharge Date: 07/27/2018 6:13:00 PM ATTENTION: The Clinical Documentation Specialists (CDI) and [facility] Coding Staff appreciate your assistance in clarifying documentation. Please respond to the clarification below the line at the bottom and electronically sign. The CDI & [facility] Coding staff will review the response and follow-up if needed. Please note: Queries are made part of the Legal Health Record. If you have any questions, please contact the author of this message via ITS. Dr. Raya Ramires Per Wound Assessment on 07/23, patient has: left heel wound - pressure injury-stage I, left great toe - pressure injury-stage I, right hip - pressure injury - stage II noted on 07/25 (all documented present on admission). right heel - decubitus - stage II per ED note. History/Risk Factors: DM, Alzhemiers Treatment: elevated feet, heel protector applied In your professional opinion, can you please clarify each diagnosis, location, laterality, etiology of the wound, stage/severity and POA: Decubitus ulcer Diabetic ulcer Non-pressure chronic ulcer due to arterial insufficiency Non-pressure chronic ulcer due to venous insufficiency Non-pressure chronic ulcer due to trauma Other, please specify Unable to determine Decubitus ulcer MTDD
== END 2018-07-27 18:13 | disposition hospice, inpatient (51) | DRG 640 ==
LOC: EC 00:07 → 4MS4W 03:36 → OBSVTOIN 14:51
PROVIDERS: ADMIT Hospitalist; ATTEND Hospitalist
DX: E86.0 Dehydration (principal); G93.41 Metabolic encephalopathy; N17.9 Acute kidney failure, unspecified; L89.212 Pressure ulcer of right hip, stage 2; Z66 Do not resuscitate; Z51.5 Encounter for palliative care; I69.339 Monoplegia of upper limb following cerebral infarction affecting unspecified side; L89.612 Pressure ulcer of right heel, stage 2; L89.891 Pressure ulcer of other site, stage 1; L89.621 Pressure ulcer of left heel, stage 1; G93.89 Other specified disorders of brain; E11.65 Type 2 diabetes mellitus with hyperglycemia; G30.9 Alzheimer's disease, unspecified; F02.80 Dementia in other diseases classified elsewhere, unspecified severity, without behavioral disturbance, psychotic disturbance, mood disturbance, and anxiety; R32 Unspecified urinary incontinence; I44.0 Atrioventricular block, first degree; I10 Essential (primary) hypertension; E87.1 Hypo-osmolality and hyponatremia; D72.829 Elevated white blood cell count, unspecified; M54.9 Dorsalgia, unspecified; M54.2 Cervicalgia; G89.29 Other chronic pain; R40.2362 Coma scale, best motor response, obeys commands, at arrival to emergency department; R40.2142 Coma scale, eyes open, spontaneous, at arrival to emergency department; R40.2242 Coma scale, best verbal response, confused conversation, at arrival to emergency department; Z79.82 Long term (current) use of aspirin; Z79.84 Long term (current) use of oral hypoglycemic drugs; Z79.891 Long term (current) use of opiate analgesic; Z79.899 Other long term (current) drug therapy; Z87.39 Personal history of other diseases of the musculoskeletal system and connective tissue; Z88.1 Allergy status to other antibiotic agents; Z88.0 Allergy status to penicillin; Z90.49 Acquired absence of other specified parts of digestive tract; Z98.890 Other specified postprocedural states; Z86.79 Personal history of other diseases of the circulatory system; Z98.1 Arthrodesis status; Z83.3 Family history of diabetes mellitus; Z82.49 Family history of ischemic heart disease and other diseases of the circulatory system; Z82.3 Family history of stroke; Z86.19 Personal history of other infectious and parasitic diseases
CPT/HCPCS: 36415; 70450; 71045; 80048; 80053; 80306; 81003; 83605; 84484; 85025; 85610; 85730; 87040; 96365; 96366; 99285